=== PATIENT | female | born 1965 | race Caucasian/White ===

== ENCOUNTER 2022-01-09 20:00 | Inpatient (IN) | payer OTHER ==
--- NOTE | 2022-01-10 00:02 | CT ---
EXAMINATION TYPE: CT brain wo con DATE OF EXAM: 01/09/2022 COMPARISON: None HISTORY: history of previous bleed 09/2021. no prior on PACS CT DLP: 1086.4 mGycm Automated exposure control for dose reduction was used. Images of the brain obtained with no contrast. Ventricles have normal size. There is no mass effect or midline shift. No evidence of intracranial he morrhage. There is mild cerebral atrophy. The calvarium is intact. Skull base is intact. IMPRESSION: Mild atrophy. No acute intracranial abnormality.
[2022-01-10] MEDS ORDERED: ONDANSETRON 4 MG/2 ML VIAL IVP STA (00:41)
[2022-01-10] MEDS ORDERED: SODIUM CHLORIDE 0.9% 1,000 ML IV STA (00:41)
--- NOTE | 2022-01-10 00:52 | ED ---
Nausea/Vomiting/Diarrhea HPI - General Chief complaint: Nausea/Vomiting/Diarrhea Stated complaint: Post brain hemorrhage,NVD Time Seen by Provider: 01/10/22 00:40 Source: patient, RN notes reviewed, old records reviewed Mode of arrival: ambulatory Limitations: no limitations - History of Present Illness Initial comments: This is a 48-year-old female to the emergency department for evaluation. Patient can be in for not feeling well. Positive nausea positive vomiting dehydration weakness lightheadedness dizziness not feeling well. Patient does have history of left abnormalities concerned about low potassium. Patient is without fever but has not been feeling well for a few days. MD complaint: nausea, vomiting, diarrhea, abdominal pain -: days(s) Description of Diarrhea: mucous Location: diffuse Radiation: none Severity: moderate Severity scale (1-10): 5 Quality: cramping Consistency: intermittent Improves with: none Worsens with: none Associated Symptoms: loss of appetite, malaise, nausea/vomiting, weakness - Related Data Allergies Allergy/AdvReac Type Severity Reaction Status Date / Time No Known Allergies Allergy Verified 01/09/22 20:31 Review of Systems ROS Statement: Those systems with pertinent positive or pertinent negative responses have been documented in the HPI. ROS Other: All systems not noted in ROS Statement are negative. Past Medical History Past Medical History: GERD/Reflux, Hypertension Additional Past Medical History / Comment(s): Brain bleed in august 2021 History of Any Multi-Drug Resistant Organisms: None Reported Past Surgical History: No Surgical Hx Reported Past Psychological History: Anxiety Smoking Status: Never smoker Past Alcohol Use History: Rare Past Drug Use History: None Reported General Exam Limitations: no limitations General appearance: alert, in no apparent distress Head exam: Present: atraumatic, normocephalic, normal inspection Eye exam: Present: normal appearance, PERRL, EOMI. Absent: scleral icterus, conjunctival injection, periorbital swelling ENT exam: Present: normal exam, mucous membranes moist Neck exam: Present: normal inspection. Absent: tenderness, meningismus, lymphadenopathy Respiratory exam: Present: normal lung sounds bilaterally. Absent: respiratory distress, wheezes, rales, rhonchi, stridor Cardiovascular Exam: Present: normal rhythm, tachycardia, normal heart sounds. Absent: systolic murmur, diastolic murmur, rubs, gallop, clicks GI/Abdominal exam: Present: soft, normal bowel sounds. Absent: distended, tenderness, guarding, rebound, rigid Extremities exam: Present: normal inspection, full ROM, normal capillary refill. Absent: tenderness, pedal edema, joint swelling, calf tenderness Back exam: Present: normal inspection Neurological exam: Present: alert, oriented X3, CN II-XII intact Psychiatric exam: Present: normal affect, normal mood Skin exam: Present: warm, dry, intact, normal color. Absent: rash Course Vital Signs 01/09/22 20:27 Temperature 98.3 F Pulse Rate 127 H Respiratory 20 Rate Blood Pressure 128/91 O2 Sat by Pulse 93 L Oximetry - Reevaluation(s) Reevaluation #1: 01/10/22 04:25 Medical record is reviewed Reevaluation #2: 01/10/22 04:25 Patient informed results and questions answered Reevaluation #3: 01/10/22 04:25 Patient has improvement in symptoms here in the ER - Consultations Consultation #1: Spoke with sound physicians review admit this patient Medical Decision Making - Medical Decision Making 48 female DF for evaluation of persistent nausea vomiting diarrhea mild hepatitis versus cholecystitis we'll obtain ultrasound in the morning and surgical consult patient be admitted for symptomatic therapy - Lab Data Result diagrams: 01/10/22 01:20 Lab Results 01/10/22 01/10/22 01/10/22 Range/Units 01:20 01:20 01:20 Sodium 132 L (137-145) mmol/L Potassium 5.9 H (3.5-5.1) mmol/L Chloride 99 (98-107) mmol/L Carbon Dioxide 21 L (22-30) mmol/L Anion Gap 12 mmol/L BUN 15 (7-17) mg/dL Creatinine 0.55 (0.52-1.04) mg/dL Est GFR (CKD-EPI)AfAm >90 (>60 ml/min/1.73 sqM) Est GFR (CKD-EPI)NonAf >90 (>60 ml/min/1.73 sqM) Glucose 95 (74-99) mg/dL Plasma Lactic Acid Man 1.6 (0.7-2.0) mmol/L Calcium 8.9 (8.4-10.2) mg/dL Phosphorus 3.9 (2.5-4.5) mg/dL Magnesium 1.8 (1.6-2.3) mg/dL Total Bilirubin 2.5 H (0.2-1.3) mg/dL AST 198 H (14-36) U/L ALT 75 H (4-34) U/L Alkaline Phosphatase 211 H (38-126) U/L Troponin I 0.018 (0.000-0.034) ng/mL Total Protein 7.9 (6.3-8.2) g/dL Albumin 4.3 (3.5-5.0) g/dL Disposition Clinical Impression: Dehydration, Gastroenteritis, Hepatitis, Hyperbilirubinemia Disposition: ADMITTED IP TO THIS HOSP Condition: Fair Is patient prescribed a controlled substance at d/c from ED?: No Time of Disposition: 03:35
[2022-01-10 02:15] LABS: ALT 75 U/L (4-34); AST 198 U/L (14-36); African American GFR (CKD) >90 (>60 ml/min/1.73 sqM); Albumin 4.3 g/dL (3.5-5.0); Alkaline Phosphatase 211 U/L (38-126); Anion Gap 12 mmol/L; Blood Urea Nitrogen 15 mg/dL (7-17); Calcium 8.9 mg/dL (8.4-10.2); Carbon Dioxide 21 mmol/L (22-30); Chloride 99 mmol/L (98-107); Glucose 95 mg/dL (74-99); Magnesium 1.8 mg/dL (1.6-2.3); Non-African American GFR(CKD) >90 (>60 ml/min/1.73 sqM); Phosphorus 3.9 mg/dL (2.5-4.5); Sodium 132 mmol/L (137-145); Total Bilirubin 2.5 mg/dL (0.2-1.3); Total Protein 7.9 g/dL (6.3-8.2)
[2022-01-10 02:47] LABS: Potassium 5.9 mmol/L (3.5-5.1)
[2022-01-10] MEDS ORDERED: NALOXONE 0.4 MG/ML 1 ML VIAL IV PRN (03:15)
[2022-01-10] MEDS ORDERED: SODIUM CHLORIDE 0.9% 1,000 ML IV SCH (03:15)
[2022-01-10] MEDS ORDERED: ONDANSETRON 4 MG/2 ML VIAL IVP PRN (03:15)
[2022-01-10] MEDS ORDERED: MORPHINE SULFATE 4 MG/ML SYRINGE IV PRN (03:15)
[2022-01-10 04:26] LABS: Basophils % (A) 0 %; Eosinophils # (A) 0.3 k/uL (0-0.7); Eosinophils % (A) 2 %; HGB 12.6 gm/dL (11.4-16.0); Lymphocytes # (A) 1.5 k/uL (1.0-4.8); Lymphocytes % (A) 13 %; MCH 29.3 pg (25.0-35.0); MCHC 32.4 g/dL (31.0-37.0); MCV 90.4 fL (80.0-100.0); Mean Platelet Volume 8.6; Monocytes # (A) 0.6 k/uL (0-1.0); Monocytes % (A) 5 %; Neutrophils % (A) 77 %; Platelet Count 172 k/uL (150-450); RBC 4.32 m/uL (3.80-5.40); RDW 15.1 % (11.5-15.5); WBC 11.6 k/uL (3.8-10.6)
--- NOTE | 2022-01-10 08:53 | US ---
EXAMINATION TYPE: US gallbladder DATE OF EXAM: 01/10/2022 COMPARISON: NONE CLINICAL HISTORY: NVD, pain. Nausea, vomiting, diarrhea, generalized abdomen pain for 3 months TECHNIQUE: Multiple sonographic images of the right upper quadrant are obtained. FINDINGS: EXAM MEASUREMENTS: Liver Length: 13.2 cm Gallbladder Wall: 0.12 cm CBD: 0.42 cm Right Kidney: 9.6 x 3.9 x 5.1 cm Pancreas: Tail obscured by overlying bowel gas Liver: Increased attenuation, decreased visualization of vessels suggestive of fatty infiltrate Gallbladder: Enlarged at 11.0 cm Evidence for sonographic Farooq's sign: No CBD: wnl Right Kidney: wnl IMPRESSION: 1. Hepatocellular disease commonly relating to fatty infiltration. 2. Dilated gallbladder without evidence for acute cholecystitis.
[2022-01-10] MEDS ORDERED: NON FORMULARY DRUG (Omeprazole [Omeprazole] 20 MG Capsule.Dr) PO SCH (09:00)
[2022-01-10] MEDS: PANTOPRAZOLE 40 MG/10 ML VIAL IV SCH (09:50)
[2022-01-10] MEDS: lisinopriL 10 MG TAB PO SCH (09:51)
[2022-01-10] MEDS: EZETIMIBE 10 MG TAB PO SCH (09:51)
[2022-01-10] MEDS: SERTRALINE 100 MG TAB PO SCH (09:51)
[2022-01-10] MEDS: LACTATED RINGERS 1,000 ML IV SCH ×5 (09:54→23:22)
--- NOTE | 2022-01-10 10:35 | P.HPIM ---
History of Present Illness H&P Date: 01/10/22 History of Presenting Illness: Patient is a very pleasant 56-year-old female with a past medical history of a hypertension, GERD, and a reported brain bleed in September 2021. She presented to the emergency department with a chief complaint of not feeling well. Patient reports that she has progressively been feeling worse since September/2021. Patient states that she has experienced 10-15 episodes of diarrhea daily, nausea, loss of appetite, and a 40 pound weight loss. Patient states that she has been evaluated multiple times and treated for low potassium and magnesium levels. Patient states due to the chronic diarrhea and decreased appetite she experiences dizziness/lightheadedness as well as occasional episodes of vomiting. She denies having any fevers, changes in vision or hearing, chest pain or palpitations, shortness of breath, hematemesis, hematochezia, melena, changes in urinary function, or experiencing any numbness/tingling/weakness/swelling of her extremities. Patient states she came to the emergency department today because she was having pain in her left upper quadrant and felt as though she was very dehydrated. She underwent full evaluation in the emergency department. CBC revealed mild leukocytosis with WBC count of 11.6, BMP revealed mild hyponatremia with sodium of 132 and hyperkalemia with potassium of 5.9 which was a hemolyzed specimen. Liver profile revealing transaminitis with AST of 198, ALT 75, and alkaline phosphatase of 211 with an elevated total bili of 2.5. Lipase elevated at 886. Hepatitis panel nonreactive. CT brain negative for acute intercranial abnormality revealing mild atrophy. Gallbladder ultrasound revealing hepatocellular disease with dilated gallbladder. Patient admitted under our services with consultation to general surgery. Review of systems: Pertinent positives and negatives as discussed in HPI, a complete review of systems was performed and all other systems are negative. Physical exam: Vital signs reviewed and stable. General: Nontoxic, no distress and appears stated age. Ill appearing. Derm: Skin warm and dry, normal coloration for ethnicity. Head: Atraumatic, normocephalic and symmetric. Eyes: EOMs intact, no lid lag, and anicteric sclera Mouth: no lip lesions, mucus membranes moist Cardiovascular: regular rate and rhythm with normal S1S2, no murmur, positive posterior tibial pulses bilaterally, and cap refill < 2 seconds. Lungs: Respirations even, regular, and unlabored on room air. Lungs CTA bilaterally, no rhonchi, no rales, no wheezing, and no accessory muscle usage. Abdominal: soft, right upper quadrant and epigastric tenderness to palpation., no guarding, no appreciable organomegaly Ext: ROM intact. No gross muscle atrophy, no edema, no contractures Neuro: Speech clear, face symmetrical and CN II-XII grossly intact with no noted focal neuro deficits Psych: Alert and oriented to person, place, time, and situation. Appropriate and pleasant affect. Assessment and Plan of Care: Pancreatitis Dehydration secondary to decreased oral intake and chronic intractable diarrhea Hyponatremia Transaminitis Hyperbilirubinemia Right upper quadrant pain Hyponatremia Fatigue Intractable diarrhea Decreased appetite Reported unintentional weight loss of 40 pounds over the months -Liver profile revealing transaminitis with AST of 198, ALT 75, and alkaline phosphatase of 211 with an elevated total bili of 2.5. Lipase elevated at 886. -Gallbladder ultrasound revealing hepatocellular disease with dilated gallbladder. -Gen. surgery consulted -Symptomatic care and pain management. -Continuous IV fluid hydration -NPO until cleared by general surgery. -Symptomatic care and pain management The patient is admitted with an anticipated less than 2 midnight stay for eval uation of pancreatitis and dehydration with elevated liver enzymes CODE STATUS: Full code DVT prophylaxis: Lovenox Discussed with: Patient and RN Anticipated discharge date: 1-[address]: Home A total of 45 minutes was spent on the care of this complex patient more than 50% of the time was spent in counseling and care coordination. Past Medical History Past Medical History: GERD/Reflux, Hypertension Additional Past Medical History / Comment(s): Brain bleed in august 2021 History of Any Multi-Drug Resistant Organisms: None Reported Past Surgical History: No Surgical Hx Reported Past Psychological History: Anxiety Smoking Status: Never smoker Past Alcohol Use History: Rare Past Drug Use History: None Reported Medications and Allergies Home Medications Medication Instructions Recorded Confirmed Type Clotrimazole/Betameth Cream 1 applic TOPICAL BID 01/10/22 01/10/22 History [Lotrisone] Dextroamphetamine/Amphetamine 20 mg PO DAILY 01/10/22 01/10/22 History [Adderall Xr 20 mg Capsule] Ezetimibe [Zetia] 10 mg PO DAILY 01/10/22 01/10/22 History Omeprazole 20 mg PO DAILY 01/10/22 01/10/22 History Potassium Chloride ER [K-Dur 20] 20 meq PO BID 01/10/22 01/10/22 History Sertraline [Zoloft] 100 mg PO DAILY 01/10/22 01/10/22 History lisinopriL [Prinivil] 10 mg PO DAILY 01/10/22 01/10/22 History Allergies Allergy/AdvReac Type Severity Reaction Status Date / Time No Known Allergies Allergy Verified 01/10/22 07:53 Physical Exam Vitals: Vital Signs Temp Pulse Resp BP Pulse Ox 01/09/22 20:27 98.3 F 127 H 20 128/91 93 L Intake and Output 01/09/22 01/10/22 01/10/22 22:59 06:59 14:59 Other: Weight 58.559 kg Results CBC & Chem 7: 01/10/22 03:44 01/10/22 14:39 Labs: Abnormal Lab Results - Last 24 Hours (Table) 01/09/22 01/10/22 01/10/22 Range/Units 01:20 01:20 03:44 WBC 11.6 H (3.8-10.6) k/uL Neutrophils # 9.0 H (1.3-7.7) k/uL Sodium 132 L (137-145) mmol/L Potassium 5.9 H (3.5-5.1) mmol/L Carbon Dioxide 21 L (22-30) mmol/L Total Bilirubin 2.5 H (0.2-1.3) mg/dL AST 198 H (14-36) U/L ALT 75 H (4-34) U/L Alkaline Phosphatase 211 H (38-126) U/L Lipase 886 H (23-300) U/L
[2022-01-10] MEDS ORDERED: Potassium Replacement Protocol 1 EACH MISC MISCELLANE PRN (10:59)
[2022-01-10] MEDS: POTASSIUM CHLORIDE ER 20 MEQ TAB.ER PO SCH ×2 (11:10→13:11)
[2022-01-10 12:23] LABS: Hepatitis A Antibody IgM Nonreactive (Nonreactive); Hepatitis B Core IgM Nonreactive (Nonreactive); Hepatitis B Surface Antigen Nonreactive (Nonreactive); Hepatitis C IgG Antibody Nonreactive (Nonreactive)
--- NOTE | 2022-01-10 13:33 | P.GSCN ---
History of Present Illness Consult date: 01/10/22 History of present illness: CHIEF COMPLAINT: Nausea vomiting and dizziness HISTORY OF PRESENT ILLNESS: This is a 56-year-old female who presents to the ER with complaints of nausea vomiting and dizziness for the last couple of months. She also reports having diarrhea and pain very lethargic. She reports poor oral intake. She's had a 40 pound weight loss within the last 2 months. She was recently hospitalized and required ICU care in September of this year for a brain bleed. Patient has been having some epigastric and right upper quadrant abdominal pain. Patient did have elevated lipase of 886 and mildly elevated LFTs as well as total bilirubin. Patient reports that she's been dealing with more of a hypokalemia due to all of her diarrhea. She was tachycardic on admission this has improved. Patient denies any cardiac history. Patient seen and examined with Dr. campos. All test results and findings reviewed by Dr. campos. PAST MEDICAL HISTORY: See list. PAST SURGICAL HISTORY: See list. MEDICATIONS: See list. ALLERGIES: See list. SOCIAL HISTORY: No illicit drug use. REVIEW OF SYSTEMS: CONSTITUTIONAL: Denies fever or chills. HEENT: Denies blurred vision, vision changes, or eye pain. Denies hemoptysis CARDIOVASCULAR: Denies chest pain or pressure. RESPIRATORY: No shortness of breath. GASTROINTESTINAL: See HPI for pertinent findings HEMATOLOGIC: Denies bleeding disorders. GENITOURINARY: Denies any blood in urine or increased urinary frequency. SKIN: Denies pruitis. Denies rash. PHYSICAL EXAM: VITAL SIGNS: Reviewed GENERAL: Well-developed in no acute distress. HEENT: No sclera icterus. Extraocular movements grossly intact. Moist buccal mucosa. Head is atraumatic, normocephalic. No nasal drainage. ABDOMEN: Soft. Nondistended. Tenderness to palpation of the right upper quadrant and epigastric area NEUROLOGIC: Alert and oriented. Cranial nerves II through XII grossly intact. LABORATORY DATA: WBC is 11.6 Hgb 12.6 platelets 172 Sodium 132 potassium 5.9 down to 3.0 creatinine 0.55 Total bilirubin 2.5 AST 198 ALT 75 alk phos 211 Lipase 886 Hepatitis panel nonreactive IMAGING: Gallbladder ultrasound hepatocellular disease, related to fatty infiltration. Dilated gallbladder without evidence for acute cholecystitis. ASSESSMENT: 1. Right upper quadrant pain with dilated gallbladder on ultrasound 2. Elevated LFTs 3. Pancreatitis 4. Hypokalemia PLAN: -Patient scheduled for laparoscopic cholecystectomy today with Dr. campos -Keep patient nothing by mouth -Add IV antibiotic due to elevated white count -Continue IV fluids -Continue supportive care -Replace potassium Thank you for this consultation Physician [employer] note has been reviewed by physician. Signing provider agrees with the documented findings, assessment, and plan of care. Past Medical History Past Medical History: GERD/Reflux, Hypertension Additional Past Medical History / Comment(s): Brain bleed in august 2021 History of Any Multi-Drug Resistant Organisms: None Reported Past Surgical History: No Surgical Hx Reported Past Psychological History: Anxiety Smoking Status: Never smoker Past Alcohol Use History: Rare Past Drug Use History: None Reported Medications and Allergies Home Medications Medication Instructions Recorded Confirmed Type Clotrimazole/Betameth Cream 1 applic TOPICAL BID 01/10/22 01/10/22 History [Lotrisone] Dextroamphetamine/Amphetamine 20 mg PO DAILY 01/10/22 01/10/22 History [Adderall Xr 20 mg Capsule] Ezetimibe [Zetia] 10 mg PO DAILY 01/10/22 01/10/22 History Omeprazole 20 mg PO DAILY 01/10/22 01/10/22 History Potassium Chloride ER [K-Dur 20] 20 meq PO BID 01/10/22 01/10/22 History Sertraline [Zoloft] 100 mg PO DAILY 01/10/22 01/10/22 History lisinopriL [Prinivil] 10 mg PO DAILY 01/10/22 01/10/22 History Allergies Allergy/AdvReac Type Severity Reaction Status Date / Time No Known Allergies Allergy Verified 01/10/22 07:53 Surgical - Exam Vital Signs Temp Pulse Resp BP Pulse Ox 98.3 F 127 H 20 128/91 93 L 01/09/22 20:27 01/09/22 20:27 01/09/22 20:27 01/09/22 20:27 01/09/22 20:27 Results - Labs 01/10/22 03:44 01/10/22 10:08 Abnormal Lab Results - Last 24 Hours (Table) 01/09/22 01/10/22 01/10/22 Range/Units 01:20 01:20 03:44 WBC 11.6 H (3.8-10.6) k/uL Neutrophils # 9.0 H (1.3-7.7) k/uL Sodium 132 L (137-145) mmol/L Potassium 5.9 H (3.5-5.1) mmol/L Carbon Dioxide 21 L (22-30) mmol/L Total Bilirubin 2.5 H (0.2-1.3) mg/dL AST 198 H (14-36) U/L ALT 75 H (4-34) U/L Alkaline Phosphatase 211 H (38-126) U/L Lipase 886 H (23-300) U/L 01/10/22 Range/Units 10:08 WBC (3.8-10.6) k/uL Neutrophils # (1.3-7.7) k/uL Sodium (137-145) mmol/L Potassium 3.0 L (3.5-5.1) mmol/L Carbon Dioxide (22-30) mmol/L Total Bilirubin (0.2-1.3) mg/dL AST (14-36) U/L ALT (4-34) U/L Alkaline Phosphatase (38-126) U/L Lipase (23-300) U/L Diabetes panel 01/10/22 01/10/22 Range/Units 01:20 10:08 Sodium 132 L (137-145) mmol/L Potassium 5.9 H 3.0 L (3.5-5.1) mmol/L Chloride 99 (98-107) mmol/L Carbon Dioxide 21 L (22-30) mmol/L BUN 15 (7-17) mg/dL Creatinine 0.55 (0.52-1.04) mg/dL Glucose 95 (74-99) mg/dL Calcium 8.9 (8.4-10.2) mg/dL AST 198 H (14-36) U/L ALT 75 H (4-34) U/L Alkaline Phosphatase 211 H (38-126) U/L Total Protein 7.9 (6.3-8.2) g/dL Albumin 4.3 (3.5-5.0) g/dL Calcium panel 01/10/22 Range/Units 01:20 Calcium 8.9 (8.4-10.2) mg/dL Phosphorus 3.9 (2.5-4.5) mg/dL Albumin 4.3 (3.5-5.0) g/dL Pituitary panel 01/10/22 01/10/22 Range/Units 01:20 10:08 Sodium 132 L (137-145) mmol/L Potassium 5.9 H 3.0 L (3.5-5.1) mmol/L Chloride 99 (98-107) mmol/L Carbon Dioxide 21 L (22-30) mmol/L BUN 15 (7-17) mg/dL Creatinine 0.55 (0.52-1.04) mg/dL Glucose 95 (74-99) mg/dL Calcium 8.9 (8.4-10.2) mg/dL Adrenal panel 01/10/22 01/10/22 Range/Units 01:20 10:08 Sodium 132 L (137-145) mmol/L Potassium 5.9 H 3.0 L (3.5-5.1) mmol/L Chloride 99 (98-107) mmol/L Carbon Dioxide 21 L (22-30) mmol/L BUN 15 (7-17) mg/dL Creatinine 0.55 (0.52-1.04) mg/dL Glucose 95 (74-99) mg/dL Calcium 8.9 (8.4-10.2) mg/dL Total Bilirubin 2.5 H (0.2-1.3) mg/dL AST 198 H (14-36) U/L ALT 75 H (4-34) U/L Alkaline Phosphatase 211 H (38-126) U/L Total Protein 7.9 (6.3-8.2) g/dL Albumin 4.3 (3.5-5.0) g/dL
[2022-01-10] MEDS ORDERED: POTASSIUM CHLORIDE ER 20 MEQ TAB.ER PO STA (15:27)
[2022-01-10] MEDS: PIPERACILLIN-TAZOBACTAM 3.375 GM in SODIUM CHLORIDE 0.9% 100 ML IVPB SCH ×2 (15:59→23:21)
[2022-01-10] MEDS ORDERED: DEXAMETHASONE SOD PHOSPHATE 4 MG/ML 1 ML VIAL IV ONE (19:13)
[2022-01-10] MEDS ORDERED: ONDANSETRON 4 MG/2 ML VIAL IVP ONE (19:13)
[2022-01-11] MEDS ORDERED: HYDROmorphone 0.5 MG/0.5 ML SYRINGE IVP PRN (07:00)
[2022-01-11] MEDS: PIPERACILLIN-TAZOBACTAM 3.375 GM in SODIUM CHLORIDE 0.9% 100 ML IVPB SCH ×2 (08:18→15:50)
[2022-01-11] MEDS: ENOXAPARIN 40 MG/0.4 ML SYRINGE SQ SCH (08:19)
[2022-01-11] MEDS: SERTRALINE 100 MG TAB PO SCH (08:20)
[2022-01-11] MEDS: PANTOPRAZOLE 40 MG/10 ML VIAL IV SCH (08:20)
[2022-01-11] MEDS: lisinopriL 10 MG TAB PO SCH (08:20)
[2022-01-11] MEDS: EZETIMIBE 10 MG TAB PO SCH (08:31)
[2022-01-11 09:17] LABS: Basophils # (A) 0.01 X 10*3/uL (0.00-0.10); Basophils % (A) 0.1 %; Eosinophils # (A) 0.02 X 10*3/uL (0.04-0.35); Eosinophils % (A) 0.2 %; HCT 31.9 % (37.2-46.3); HGB 10.5 g/dL (12.0-15.0); Immature Grans, Automated 0.6 %; Lymphocytes % (A) 10.4 %; MCH 29.3 pg (27.0-32.0); MCHC 32.9 g/dL (32.0-37.0); MCV 89.1 fL (80.0-97.0); Mean Platelet Volume 11.5 fL (9.5-12.2); Monocytes # (A) 0.59 X 10*3/uL (0.20-1.00); Monocytes % (A) 6.8 %; NRBC Per 100 WBC 0 /100 WBCS (0.0-0.0); Neutrophils # (A) 7.12 X 10*3/uL (1.80-7.70); Neutrophils % (A) 81.9 %; Platelet Count 166 X 10*3/uL (140-440); RBC 3.58 X 10*6/uL (4.10-5.20); RDW 15.2 % (11.5-14.5); WBC 8.69 X 10*3/uL (4.50-10.00)
[2022-01-11 09:36] LABS: INR 1.02 (0.90-1.11); Prothrombin Time 11.2 sec (9.9-11.9)
[2022-01-11 10:56] LABS: Magnesium 1.8 mg/dL (1.5-2.4)
[2022-01-11] MEDS ORDERED: IV FLUID CONTINUATION 1,000 ML IV ONE (13:19)
[2022-01-11] MEDS ORDERED: ONDANSETRON 4 MG/2 ML VIAL IVP ONE (13:22)
[2022-01-11] MEDS ORDERED: DEXAMETHASONE SOD PHOSPHATE 4 MG/ML 1 ML VIAL IVP ONE (13:23)
[2022-01-11] MEDS ORDERED: PROPOFOL 10 MG/ML 20 ML VIAL IV ONE (13:54)
[2022-01-11] MEDS ORDERED: NEOSTIGMINE 1 MG/ML 10 ML VIAL ONE (13:54)
[2022-01-11] MEDS ORDERED: ROCURONIUM 10 MG/ML (5 ML VIAL) IV ONE (13:54)
[2022-01-11] MEDS ORDERED: SUCCINYLCHOLINE CHLORIDE 200 MG/10 ML VIAL IV ONE (13:54)
[2022-01-11] MEDS ORDERED: fentaNYL (PF) 50 MCG/ML 2 ML AMP ONE (13:54)
[2022-01-11] MEDS ORDERED: GLYCOPYRROLATE 0.2 MG/ML 2 ML VIAL ONE (13:54)
[2022-01-11] MEDS ORDERED: KETOROLAC 15 MG/ML 1 ML VIAL ONE (13:54)
[2022-01-11] MEDS ORDERED: MIDAZOLAM 2 MG/2 ML VIAL ONE (13:54)
[2022-01-11] MEDS ORDERED: HYDROmorphone (PF) 1 MG/ML ONE (13:54)
[2022-01-11] MEDS ORDERED: LIDOCAINE 2% INJ 20 MG/ML (2 ML VIAL) ONE (13:54)
[2022-01-11] MEDS ORDERED: PHENYLEPHRINE-0.9% NACL SYG 1,000 MCG/10 ML SYRINGE ONE (13:54)
[2022-01-11] MEDS ORDERED: BUPIVACAIN-EPI 0.25%-1:200,000 30 ML VIAL SQ ONE ×2 (13:55)
--- NOTE | 2022-01-11 14:38 | P.OP ---
Date of Procedure: 01/11/22 Preoperative Diagnosis: Cholecystitis Postoperative Diagnosis: Cholecystitis Procedure(s) Performed: Laparoscopic cholecystectomy Anesthesia: DAXA Surgeon: Jb Sandoval Estimated Blood Loss (ml): 5 Pathology: other (Gallbladder) Condition: stable Disposition: PACU Description of Procedure: The patient was placed on the operating table. The patient received a general endotracheal tube anesthesia. The patients abdomen was prepped and draped in the usual sterile fashion. Through an infraumbilical stab incision, the fascia of the anterior abdominal wall was grasped with a pair of Kochers and then the Veress needle was placed in the peritoneal cavity. Position of the Veress needle was confirmed with positive drop test. The abdomen was then insufflated. After adequate insufflation, the 10 mm trocar was placed in the peritoneal cavity. Following this the laparoscope was placed in the peritoneal cavity. The patient was placed in the head-up, right side up position and then a 5 mm trocar was placed in the right lateral and right subcostal position under direct visualization. A 8 mm trocar was placed in the epigastric position. The gallbladder was grasped in the fundus and infundibulum. Traction on the gallbladder was placed in the lateral and the cephalad positions. The triangle of Calot was visualized.. The cystic duct was bluntly dissected until the union of the cystic duct and common bile duct was seen. A critical view of safety was achieved. The cystic duct was then divided and sealed with the Harmonic scissors. A PDS Endoloop was then placed throughout the cystic duct stump. The cystic artery divided and sealed with the Harmonic scissors. The gallbladder was then removed from the liver bed using Harmonic scissors. The gallbladder was then extracted through the epigastric port site. Operative field was checked for any bleeding spots and Harmonic scissors was used to coagulate the liver bed. The abdomen was irrigated. The trocars were removed. The skin was closed using interrupted 3-0 Vicryl suture. Dermabond dressing were applied. The patient tolerated the procedure well.
[2022-01-11] MEDS: LACTATED RINGERS 1,000 ML IV SCH ×2 (14:39→20:33)
[2022-01-11] MEDS ORDERED: LACTATED RINGERS 1,000 ML IV ONE ×2 (14:42)
--- NOTE | 2022-01-11 17:50 | P.PN ---
Subjective Progress Note Date: 01/11/22 Hospital course: Patient is a very pleasant 56-year-old female with a past medical history of a hypertension, GERD, and a reported brain bleed in September 2021. She presented to the emergency department with a chief complaint of not feeling well. Patient reports that she has progressively been feeling worse since September/2021. Patient states that she has experienced 10-15 episodes of diarrhea daily, nausea, loss of appetite, and a 40 pound weight loss. Patient states that she has been evaluated multiple times and treated for low potassium and magnesium levels. Patient states due to the chronic diarrhea and decreased appetite she experiences dizziness/lightheadedness as well as occasional episodes of vomiting. She denies having any fevers, changes in vision or hearing, chest pain or palpitations, shortness of breath, hematemesis, hematochezia, melena, changes in urinary function, or experiencing any numbness/tingling/weakness/swelling of her extremities. Patient states she came to the emergency department today because she was having pain in her left upper quadrant and felt as though she was very dehydrated. She underwent full evaluation in the emergency department. CBC revealed mild leukocytosis with WBC count of 11.6, BMP revealed mild hyponatremia with sodium of 132 and hyperkalemia with potassium of 5.9 which was a hemolyzed specimen. Liver profile revealing transaminitis with AST of 198, ALT 75, and alkaline phosphatase of 211 with an elevated total bili of 2.5. Lipase elevated at 886. Hepatitis panel nonreactive. CT brain negative for acute intercranial abnormality revealing mild atrophy. Gallbladder ultrasound revealing hepatocellular disease with dilated gallbladder. Patient admitted under our services with consultation to general surgery. Physical exam: Patient seen and fully evaluated at bedside this morning. Awaiting to be taken down for scheduled laparoscopic cholecystectomy with Dr. Sandoval later today. She currently reports pain is controlled and denies having any nausea or vomiting at this time. Vital signs stable. Morning labs reviewed and stable. Vital signs reviewed and stable. General: Nontoxic, no distress and appears stated age. Ill appearing. Derm: Skin warm and dry, normal coloration for ethnicity. Head: Atraumatic, normocephalic and symmetric. Eyes: EOMs intact, no lid lag, and anicteric sclera Mouth: no lip lesions, mucus membranes moist Cardiovascular: regular rate and rhythm with normal S1S2, no murmur, positive posterior tibial pulses bilaterally, and cap refill < 2 seconds. Lungs: Respirations even, regular, and unlabored on room air. Lungs CTA bilaterally, no rhonchi, no rales, no wheezing, and no accessory muscle usage. Abdominal: soft, right upper quadrant and epigastric tenderness to palpation., no guarding, no appreciable organomegaly Ext: ROM intact. No gross muscle atrophy, no edema, no contractures Neuro: Speech clear, face symmetrical and CN II-XII grossly intact with no noted focal neuro deficits Psych: Alert and oriented to person, place, time, and situation. Appropriate and pleasant affect. Assessment and Plan of Care: Pancreatitis Dehydration secondary to decreased oral intake and chronic intractable diarrhea Hyponatremia Transaminitis Hyperbilirubinemia Right upper quadrant pain Fatigue Intractable diarrhea Decreased appetite Reported unintentional weight loss of 40 pounds over the months -Liver profile revealing transaminitis with AST of 198, ALT 75, and alkaline phosphatase of 211 with an elevated total bili of 2.5. Lipase elevated at 886. -Gallbladder ultrasound revealing hepatocellular disease with dilated gallbladder. -Gen. surgery following, planning to take patient for laparoscopic cholecystectomy later today. -Symptomatic care and pain management. -Continuous IV fluid hydration -NPO until diet advanced by general surgery status post planned cholecystectomy later today. -Symptomatic care and pain management CODE STATUS: Full code DVT prophylaxis: Lovenox Discussed with: Patient and RN Anticipated discharge date: 1-[address]: Home A total of 35 minutes was spent on the care of this complex patient more than 50% of the time was spent in counseling and care coordination. Objective - Vital Signs Vital signs: Vital Signs Temp 98.6 F 01/11/22 07:39 Pulse 77 01/11/22 07:39 Resp 14 01/11/22 07:39 BP 113/73 01/11/22 07:39 Pulse Ox 95 01/11/22 07:39 FiO2 Intake & Output 01/10/22 01/11/22 01/11/22 18:59 06:59 18:59 Weight 58.559 kg Other: # Voids 1 - Labs CBC & Chem 7: 01/11/22 05:28 01/11/22 05:28 Labs: Abnormal Lab Results - Last 24 Hours (Table) 01/10/22 Range/Units 10:08 Potassium 3.0 L (3.5-5.1) mmol/L
[2022-01-12] MEDS: LACTATED RINGERS 1,000 ML IV SCH ×5 (00:03→21:13)
[2022-01-12] MEDS: PIPERACILLIN-TAZOBACTAM 3.375 GM in SODIUM CHLORIDE 0.9% 100 ML IVPB SCH ×3 (00:05→15:52)
[2022-01-12] MEDS: HYDROmorphone 1 MG/ML 1 ML SYRINGE IVP PRN ×3 (00:09→08:35)
[2022-01-12] MEDS ORDERED: HYDROcodone/APAP 5-325MG 1 EACH TAB PO PRN (08:16)
[2022-01-12] MEDS: lisinopriL 10 MG TAB PO SCH (08:36)
[2022-01-12] MEDS: PANTOPRAZOLE 40 MG/10 ML VIAL IV SCH (08:36)
[2022-01-12] MEDS: SERTRALINE 100 MG TAB PO SCH (08:37)
[2022-01-12] MEDS: ENOXAPARIN 40 MG/0.4 ML SYRINGE SQ SCH (08:37)
[2022-01-12] MEDS: EZETIMIBE 10 MG TAB PO SCH (08:47)
[2022-01-12] MEDS ORDERED: ENOXAPARIN 40 MG/0.4 ML SYRINGE SQ SCH (09:00)
[2022-01-12 10:54] LABS: HCT 30.6 % (37.2-46.3); HGB 9.8 g/dL (12.0-15.0); MCH 29.3 pg (27.0-32.0); MCV 91.6 fL (80.0-97.0); Mean Platelet Volume 11.4 fL (9.5-12.2); NRBC Per 100 WBC 0 /100 WBCS (0.0-0.0); Platelet Count 156 X 10*3/uL (140-440); RBC 3.34 X 10*6/uL (4.10-5.20); RDW 15.8 % (11.5-14.5); WBC 9.59 X 10*3/uL (4.50-10.00)
[2022-01-12 11:13] LABS: African American GFR (CKD) 116.4 (60.0-200.0); Albumin 2.9 g/dL (3.8-4.9); Albumin/Globulin Ratio 1.45 (1.60-3.17); Anion Gap 10.6 mmol/L (10.00-18.00); Blood Urea Nitrogen 7.2 mg/dL (9.0-27.0); Calcium 8.4 mg/dL (8.7-10.3); Carbon Dioxide 24.4 mmol/L (20.0-27.5); Magnesium 1.6 mg/dL (1.5-2.4); Non-African American GFR(CKD) 100.5 (60.0-200.0); Potassium 3.4 mmol/L (3.5-5.5); Total Bilirubin 0.4 mg/dL (0.30-1.20); Total Protein 4.9 g/dL (6.2-8.2)
[2022-01-12] MEDS: traMADol 50 MG TAB PO PRN ×2 (12:29→21:09)
[2022-01-12 14:29] VITALS: BMI 23.6
[2022-01-12] MEDS ORDERED: POTASSIUM CHLORIDE ER 20 MEQ TAB.ER PO STA (15:17)
--- NOTE | 2022-01-12 15:20 | P.PN ---
Subjective Progress Note Date: 01/12/22 CHIEF COMPLAINT: Cholecystitis HISTORY OF PRESENT ILLNESS: Patient is postop day #1 status post laparoscopic cholecystectomy. Patient does report pain at incision sites. Patient reports the pain is different than admission. She denies any nausea vomiting. Her main complaint is that she continues to have the diarrhea which she's had for a while. She reports that she was seen by a linux network systems administrator at [facility] had recently undergone a colonoscopy and has had stool studies. She has not been able to follow-up with that physician. Afebrile. WBC is 9.59 hemoglobin 9.8 platelets 156 sodium was 140 potassium is 3.4 creatinine 0.6 total bilirubin is down from 2.5-0.4 AST is down from 198-119 ALT 75-73 alk phos 211-168 last lipase down to 191 Patient seen and examined with Dr. campos PHYSICAL EXAM: VITAL SIGNS: Reviewed. GENERAL: Well-developed in no acute distress. HEENT: No sclera icterus. Extraocular movements grossly intact. Moist buccal mucosa. Head is atraumatic, normocephalic. ABDOMEN: Soft. Nondistended. Incision sites clean dry and intact NEUROLOGIC: Alert and oriented. Cranial nerves II through XII grossly intact. ASSESSMENT: 1. Cholecystitis status post laparoscopic cholecystectomy 2. Acute pancreatitis 3. Elevated LFTs 4. Hypokalemia PLAN: -Replace potassium -Continue regular diet -Continue pain management. Patient requesting Ultram incentive Dolphin -Continue antibiotics -Encouraged patient ambulates -Repeat labs in a.m. -GI prophylaxis Protonix and DVT prophylaxis Lovenox Physician Coil Maker note has been reviewed by physician. Signing provider agrees with the documented findings, assessment, and plan of care. Objective - Vital Signs Vital signs: Vital Signs Temp 97.1 F L 01/12/22 14:24 Pulse 85 01/12/22 14:24 Resp 18 01/12/22 14:24 BP 102/68 01/12/22 14:24 Pulse Ox 96 01/12/22 14:24 FiO2 Intake & Output 01/11/22 01/12/22 01/12/22 18:59 06:59 18:59 Intake Total 900 Output Total 105 Balance 795 Weight 58.559 kg Intake: IV 900 Output: Urine 100 Estimated Blood Loss 5 Other: Voiding Method Toilet Toilet Toilet # Voids 2 2 - Labs CBC & Chem 7: 01/12/22 06:45 01/12/22 06:45 Labs: Abnormal Lab Results - Last 24 Hours (Table) 01/12/22 01/12/22 Range/Units 06:45 06:45 RBC 3.34 L (4.10-5.20) X 10*6/uL Hgb 9.8 L (12.0-15.0) g/dL Hct 30.6 L (37.2-46.3) % RDW 15.8 H (11.5-14.5) % Potassium 3.4 L (3.5-5.5) mmol/L BUN 7.2 L (9.0-27.0) mg/dL Calcium 8.4 L (8.7-10.3) mg/dL AST 119 H (13-35) U/L ALT 73 H (8-44) U/L Alkaline Phosphatase 168 H (41-126) U/L Total Protein 4.9 L (6.2-8.2) g/dL Albumin 2.9 L (3.8-4.9) g/dL Albumin/Globulin Ratio 1.45 L (1.60-3.17) g/dL
[2022-01-12] MEDS: KETOROLAC 15 MG/ML 1 ML VIAL IVP SCH (16:19)
--- NOTE | 2022-01-12 16:28 | P.PN ---
Subjective Progress Note Date: 01/12/22 Hospital course: Patient is a very pleasant 56-year-old female with a past medical history of a hypertension, GERD, and a reported brain bleed in September 2021. She presented to the emergency department with a chief complaint of not feeling well. Patient reports that she has progressively been feeling worse since September/2021. Patient states that she has experienced 10-15 episodes of diarrhea daily, nausea, loss of appetite, and a 40 pound weight loss. Patient states that she has been evaluated multiple times and treated for low potassium and magnesium levels. Patient states due to the chronic diarrhea and decreased appetite she experiences dizziness/lightheadedness as well as occasional episodes of vomiting. She denies having any fevers, changes in vision or hearing, chest pain or palpitations, shortness of breath, hematemesis, hematochezia, melena, changes in urinary function, or experiencing any numbness/tingling/weakness/swelling of her extremities. Patient states she came to the emergency department today because she was having pain in her left upper quadrant and felt as though she was very dehydrated. She underwent full evaluation in the emergency department. CBC revealed mild leukocytosis with WBC count of 11.6, BMP revealed mild hyponatremia with sodium of 132 and hyperkalemia with potassium of 5.9 which was a hemolyzed specimen. Liver profile revealing transaminitis with AST of 198, ALT 75, and alkaline phosphatase of 211 with an elevated total bili of 2.5. Lipase elevated at 886. Hepatitis panel nonreactive. CT brain negative for acute intercranial abnormality revealing mild atrophy. Gallbladder ultrasound revealing hepatocellular disease with dilated gallbladder. Patient admitted under our services with consultation to general surgery and underwent laparoscopic cholecystectomy with Dr. Sandoval 01/11/22. Physical exam: Patient seen and fully evaluated at bedside this morning. She is day 1 postop laparoscopic cholecystectomy. She continues to report persistent diarrhea stating she has had approximately 12 episodes over the past 24 hours. Morning labs revealing hemoglobin 9.8, potassium 3.4, and magnesium of 1.6. Hyperbilirubinemia resolved with total bili of 0.40. Liver profile improving with AST of 119, ALT 73, and alkaline phosphatase of 168. Lipase also improving to 191. At this time patient to continue IV antibiotics Zosyn and Flagyl per recommendations of general surgery. Potassium and magnesium to be replaced. Stool be sent for C. diff and patient will likely be discharged within the next 24 hours. Vital signs reviewed and stable. General: Nontoxic, no distress and appears stated age. Chronically Ill appearing. Derm: Skin warm and dry, normal coloration for ethnicity. Head: Atraumatic, normocephalic and symmetric. Eyes: EOMs intact, no lid lag, and anicteric sclera Mouth: no lip lesions, mucus membranes moist Cardiovascular: regular rate and rhythm with normal S1S2, no murmur, positive posterior tibial pulses bilaterally, and cap refill < 2 seconds. Lungs: Respirations even, regular, and unlabored on room air. Lungs CTA bilat erally, no rhonchi, no rales, no wheezing, and no accessory muscle usage. Abdominal: soft, bowel sounds present 4 quadrants, no guarding, no appreciable organomegaly. Laparoscopic Surgical incisions intact, no surrounding erythema or drainage Ext: ROM intact. No gross muscle atrophy, no edema, no contractures Neuro: Speech clear, face symmetrical and CN II-XII grossly intact with no noted focal neuro deficits Psych: Alert and oriented to person, place, time, and situation. Appropriate and pleasant affect. Assessment and Plan of Care: Cholecystitis Acute Pancreatitis Dehydration secondary to decreased oral intake and chronic intractable diarrhea Hyponatremia Transaminitis, improving status post cholecystectomy Hyperbilirubinemia, resolved Intractable diarrhea Hypokalemia Hypomagnesemia -Gallbladder ultrasound revealing hepatocellular disease with dilated gallbladder. -Gen. surgery following, patient underwent a laparoscopic cholecystectomy 01/11/22 -Continue IV antibiotics Zosyn and Flagyl -Symptomatic care and pain management. -Continuous IV fluid hydration and replacement of abnormal electrolyte values as needed -Regular diet and encourage Ensure 3 times daily between meals -Symptomatic care and pain management CODE STATUS: Full code DVT prophylaxis: Lovenox Discussed with: Patient and RN Anticipated discharge date: Likely within the next [address]: Home A total of 35 minutes was spent on the care of this complex patient more than 50% of the time was spent in counseling and care coordination. Objective - Vital Signs Vital signs: Vital Signs Temp 98.8 F 01/12/22 07:00 Pulse 70 01/12/22 07:00 Resp 17 01/12/22 02:47 BP 110/70 01/12/22 07:00 Pulse Ox 95 01/12/22 07:00 FiO2 Intake & Output 0901/12/22 01/12/22 18:59 06:59 18:59 Intake Total 900 Output Total 105 Balance 795 Intake: IV 900 Output: Urine 100 Estimated Blood Loss 5 Other: Voiding Method Toilet Toilet # Voids 2 2 - Labs CBC & Chem 7: 01/12/22 06:45 01/12/22 06:45 Labs: Abnormal Lab Results - Last 24 Hours (Table) 01/11/22 01/11/22 Range/Units 05:28 05:28 RBC 3.58 L (4.10-5.20) X 10*6/uL Hgb 10.5 L (12.0-15.0) g/dL Hct 31.9 L (37.2-46.3) % RDW 15.2 H (11.5-14.5) % Immature Gran # 0.05 H (0.00-0.04) X 10*3/uL Eosinophils # 0.02 L (0.04-0.35) X 10*3/uL Lipase 191 H (14-63) U/L
[2022-01-12] MEDS: MAGNESIUM SULFATE-D5W PMX 1 GM in DEXTROSE/WATER 1 100ML.BAG IVPB SCH ×3 (16:55→19:46)
[2022-01-13] MEDS: PIPERACILLIN-TAZOBACTAM 3.375 GM in SODIUM CHLORIDE 0.9% 100 ML IVPB SCH ×2 (00:44→09:01)
[2022-01-13] MEDS: KETOROLAC 15 MG/ML 1 ML VIAL IVP SCH ×2 (00:44→05:00)
[2022-01-13] MEDS: traMADol 50 MG TAB PO PRN (06:06)
[2022-01-13] MEDS: LACTATED RINGERS 1,000 ML IV SCH ×2 (06:07→10:56)
--- NOTE | 2022-01-13 08:42 | P.PN ---
Subjective Progress Note Date: 01/13/22 CHIEF COMPLAINT: Cholecystitis HISTORY OF PRESENT ILLNESS: Patient is postop day #2 status post laparoscopic cholecystectomy. Pain is controlled. She is tolerating diet. She's afebrile. She's up and ambulating. Morning labs pending Patient seen and examined with Dr. campos PHYSICAL EXAM: VITAL SIGNS: Reviewed. GENERAL: Well-developed in no acute distress. HEENT: No sclera icterus. Extraocular movements grossly intact. Moist buccal mucosa. Head is atraumatic, normocephalic. ABDOMEN: Soft. Nondistended. Incision sites clean dry and intact NEUROLOGIC: Alert and oriented. Cranial nerves II through XII grossly intact. ASSESSMENT: 1. Cholecystitis status post laparoscopic cholecystectomy 2. Acute pancreatitis 3. Elevated LFTs 4. Hypokalemia PLAN: -Patient is stable from surgical standpoint for discharge -Patient to follow up with GI service outpatient regarding her chronic diarrhea Physician Extrusion Process Operator note has been reviewed by physician. Signing provider agrees with the documented findings, assessment, and plan of care. Objective - Vital Signs Vital signs: Vital Signs Temp 98.9 F 01/13/22 01:19 Pulse 84 01/13/22 01:19 Resp 17 01/13/22 01:19 BP 133/80 01/13/22 01:19 Pulse Ox 94 L 01/13/22 01:19 FiO2 Intake & Output 01/12/22 01/13/22 01/13/22 18:59 06:59 18:59 Weight 58.559 kg Other: Voiding Method Toilet Toilet # Voids 1 2 - Labs CBC & Chem 7: 01/12/22 06:45 01/12/22 06:45 Labs: Abnormal Lab Results - Last 24 Hours (Table) 01/12/22 01/12/22 Range/Units 06:45 06:45 RBC 3.34 L (4.10-5.20) X 10*6/uL Hgb 9.8 L (12.0-15.0) g/dL Hct 30.6 L (37.2-46.3) % RDW 15.8 H (11.5-14.5) % Potassium 3.4 L (3.5-5.5) mmol/L BUN 7.2 L (9.0-27.0) mg/dL Calcium 8.4 L (8.7-10.3) mg/dL AST 119 H (13-35) U/L ALT 73 H (8-44) U/L Alkaline Phosphatase 168 H (41-126) U/L Total Protein 4.9 L (6.2-8.2) g/dL Albumin 2.9 L (3.8-4.9) g/dL Albumin/Globulin Ratio 1.45 L (1.60-3.17) g/dL
[2022-01-13] MEDS: SERTRALINE 100 MG TAB PO SCH (09:02)
[2022-01-13] MEDS: lisinopriL 10 MG TAB PO SCH (09:02)
[2022-01-13] MEDS: EZETIMIBE 10 MG TAB PO SCH (09:02)
[2022-01-13] MEDS: PANTOPRAZOLE 40 MG/10 ML VIAL IV SCH (09:02)
[2022-01-13] MEDS: ENOXAPARIN 40 MG/0.4 ML SYRINGE SQ SCH (09:02)
[2022-01-13 09:09] VITALS: BP 110/69; PULSE 76; RESP 16; TEMP 98.4
--- NOTE | 2022-01-13 09:42 | P.DS ---
Providers Date of admission: 01/11/22 17:51 Expected date of discharge: 01/13/22 Attending physician: Alison Garcia MD Consults: 01/10/22 03:15 Consult Physician Routine Consulting Provider: Jb Sandoval Consult Reason/Comments: shana Do you want consulting provider notified?: Yes Primary care physician: Physician Nonstaff Hospital Course: Discharge Diagnosis: Cholecystitis, status post laparoscopic cholecystectomy on 01/11/22. Patient will need to follow up outpatient with general surgery as scheduled on 01/24/22. Acute Pancreatitis, resolved Dehydration secondary to decreased oral intake and chronic intractable diarrhea, resolved Hyponatremia, resolved Transaminitis, improving status post cholecystectomy Hyperbilirubinemia, resolved Chronic diarrhea, patient reports has improved since cholecystectomy but does continue. Patient instructed she will need to follow up outpatient as previously scheduled with her freelance programmer/app developer. Hypokalemia, resolved Hypomagnesemia, resolved Hospital Course: Patient is a very pleasant 56-year-old female with a past medical history of a hypertension, GERD, and a reported brain bleed in September 2021. She presented to the emergency department with a chief complaint of not feeling well. Patient reports that she has progressively been feeling worse since September/2021. Patient states that she has experienced 10-15 episodes of diarrhea daily, nausea, loss of appetite, and a 40 pound weight loss. Patient states that she has been evaluated multiple times and treated for low potassium and magnesium levels. Patient states due to the chronic diarrhea and decreased appetite she experiences dizziness/lightheadedness as well as occasional episodes of vomiting. She denies having any fevers, changes in vision or hearing, chest pain or palpitations, shortness of breath, hematemesis, hematochezia, melena, changes in urinary function, or experiencing any numbness/tingling/weakness/swelling of her extremities. Patient states she came to the emergency department today because she was having pain in her left upper quadrant and felt as though she was very dehydrated. She underwent full evaluation in the emergency department. CBC revealed mild leukocytosis with WBC count of 11.6, BMP revealed mild hyponatremia with sodium of 132 and hyperkalemia with potassium of 5.9 which was a hemolyzed specimen. Liver profile revealing transaminitis with AST of 198, ALT 75, and alkaline phosphatase of 211 with an elevated total bili of 2.5. Lipase elevated at 886. Hepatitis panel nonreactive. CT brain negative for acute intercranial abnormality revealing mild atrophy. Gallbladder ultrasound revealing hepatocellular disease with dilated gallbladder. Patient admitted under our services with consultation to general surgery and underwent laparoscopic cholecystectomy with Dr. Sandoval 01/11/22. Since surgery patient tolerating oral intake with no episodes of nausea or vomiting. Hyperbilirubinemia resolved. Transaminitis improving each day and nearly resolved with AST of 46, ALT of 50, an alkaline phosphatase of 142 on day of discharge. Bilirubin 0.40 on day of discharge. C. diff culture came back negative. Hyponatremia resolved, hypokalemia resolved, and hypomagnesemia all resolved. Patient does report she has had improvement but continues to have episodes of diarrhea. Patient is medically stable for discharge at this time and recommended to follow up outpatient with her PCP, freelance programmer/app developer for further evaluation of chronic diarrhea, and with general surgery as discussed. Physical exam: Vital signs reviewed and stable. General: Nontoxic, no distress and appears stated age. Derm: Skin warm and dry, normal coloration for ethnicity. Head: Atraumatic, normocephalic and symmetric. Eyes: EOMs intact, no lid lag, and anicteric sclera Mouth: no lip lesions, mucus membranes moist Cardiovascular: regular rate and rhythm with normal S1S2, no murmur, positive posterior tibial pulses bilaterally, and cap refill < 2 seconds. Lungs: Respirations even, regular, and unlabored on room air. Lungs CTA bilaterally, no rhonchi, no rales, no wheezing, and no accessory muscle usage. Abdominal: soft, bowel sounds present 4 quadrants, no guarding, no appreciable organomegaly. Laparoscopic Surgical incisions intact, no surrounding erythema or drainage Ext: ROM intact. No gross muscle atrophy, no edema, no contractures Neuro: Speech clear, face symmetrical and CN II-XII grossly intact with no noted focal neuro deficits Psych: Alert and oriented to person, place, time, and situation. Appropriate and pleasant affect. A total of 33 minutes of time were spent preparing this complex discharge summary. Pt was discharged on 01/13/22 at 9:39 AM Patient Condition at Discharge: Stable Plan - Discharge Summary Discharge Rx Participant: No New Discharge Prescriptions: New traMADol HCl [Ultram] 100 mg PO Q8HR PRN 3 Days #9 tab PRN Reason: Pain Ibuprofen [Motrin] 600 mg PO Q8HR PRN #30 tab PRN Reason: Pain Continue Potassium Chloride ER [K-Dur 20] 20 meq PO BID Ezetimibe [Zetia] 10 mg PO DAILY lisinopriL [Prinivil] 10 mg PO DAILY Sertraline [Zoloft] 100 mg PO DAILY Clotrimazole/Betameth Cream [Lotrisone] 1 applic TOPICAL BID Omeprazole 20 mg PO DAILY Discontinued Dextroamphetamine/Amphetamine [Adderall Xr 20 mg Capsule] 20 mg PO DAILY Discharge Medication List Clotrimazole/Betameth Cream [Lotrisone] 1 applic TOPICAL BID 01/10/22 [History] Ezetimibe [Zetia] 10 mg PO DAILY 01/10/22 [History] Omeprazole 20 mg PO DAILY 01/10/22 [History] Potassium Chloride ER [K-Dur 20] 20 meq PO BID 01/10/22 [History] Sertraline [Zoloft] 100 mg PO DAILY 01/10/22 [History] lisinopriL [Prinivil] 10 mg PO DAILY 01/10/22 [History] Ibuprofen [Motrin] 600 mg PO Q8HR PRN #30 tab 01/13/22 [Rx] traMADol HCl [Ultram] 100 mg PO Q8HR PRN 3 Days #9 tab 01/13/22 [Rx] Follow up Appointment(s)/Referral(s): Ferny Miller MD [REFERRING] - 1-2 Days Isabel Zeng MD [STAFF PHYSICIAN] - 1 Week (I left a message on the Doctor's office voicemail with Pt phone number and asked the office to call to make an appointment. ) Jb Sandoval MD [STAFF PHYSICIAN] - 01/24/22 2:00 pm Patient Instructions/Handouts: Heart Healthy Diet (DC), Basic Carbohydrate Counting (DC), Laparoscopic Cholecystectomy (DC) Activity/Diet/Wound Care/Special Instructions: Activity: As tolerated. Take breaks as needed. Diet: Heart healthy and carb consistent diet. Avoid salts, or foods with hidden salts such as canned or boxed foods and frozen dinners. Extra salt makes your heart work harder and traps the fluid in your body for longer. Special Instructions: Take all of your medications as directed and remember to keep all of your doctor's appointments and follow-up as needed. No driving while taking Ultram No lifting over 10 pounds You may shower. No soaking or tub baths for 2 weeks Very light activity until you are reevaluated at your follow up appointment with your surgeon Thank you for allowing us to participate in your care, it was truly a pleasure having you for our patient!!! Discharge Disposition: HOME SELF-CARE
[2022-01-13 10:52] LABS: HGB 10.3 g/dL (12.0-15.0); MCHC 31.2 g/dL (32.0-37.0); Mean Platelet Volume 11.5 fL (9.5-12.2); NRBC Per 100 WBC 0 /100 WBCS (0.0-0.0); Platelet Count 160 X 10*3/uL (140-440); RBC 3.55 X 10*6/uL (4.10-5.20); RDW 16.2 % (11.5-14.5); WBC 10.19 X 10*3/uL (4.50-10.00)
[2022-01-13 11:08] LABS: Magnesium 2.2 mg/dL (1.5-2.4)
[2022-01-13 11:09] LABS: African American GFR (CKD) 109.9 (60.0-200.0); Albumin 2.8 g/dL (3.8-4.9); Albumin/Globulin Ratio 1.4 (1.60-3.17); Anion Gap 8.1 mmol/L (10.00-18.00); BUN/Creat Ratio 7.14 Ratio (12.00-20.00); Calcium 8.2 mg/dL (8.7-10.3); Carbon Dioxide 25.9 mmol/L (20.0-27.5); Non-African American GFR(CKD) 94.8 (60.0-200.0); Potassium 3.8 mmol/L (3.5-5.5); Total Bilirubin 0.4 mg/dL (0.30-1.20); Total Protein 4.8 g/dL (6.2-8.2)
== END 2022-01-13 13:38 | disposition home or self-care (01) | DRG 417 ==
LOC: EC 20:00 → 6NMEDSUR 01-10 03:15 → OBSVTOIN 01-11 17:51 → 6NMEDSUR 01-12 16:39
PROVIDERS: ADMIT Internal Medicine; ATTEND Internal Medicine
PROC: 0FT44ZZ Resection of Gallbladder, Percutaneous Endoscopic Approach (ICD-10-PCS; principal; 2022-01-11 14:15)
DX: K81.9 Cholecystitis, unspecified (principal); K85.90 Acute pancreatitis without necrosis or infection, unspecified; E87.1 Hypo-osmolality and hyponatremia; E86.0 Dehydration; K52.9 Noninfective gastroenteritis and colitis, unspecified; K75.9 Inflammatory liver disease, unspecified; I10 Essential (primary) hypertension; K21.9 Gastro-esophageal reflux disease without esophagitis; E87.6 Hypokalemia; E83.42 Hypomagnesemia; E87.5 Hyperkalemia; F41.9 Anxiety disorder, unspecified; Z79.899 Other long term (current) drug therapy
CPT/HCPCS: 36415; 70450; 76705; 80053; 80074; 83605; 83690; 83735; 84100; 84132; 84484; 85025; 85027; 85610; 87324; 88304; 96361; 96374; 96375; 99285

== ENCOUNTER 2022-01-21 15:38 | Inpatient (IN) | payer OTHER ==
[2022-01-21] MEDS ORDERED: SODIUM CHLORIDE 0.9% 1,000 ML IV STA ×3 (16:19→19:46)
[2022-01-21 16:24] LABS: Basophils % (A) 1 %; Eosinophils # (A) 0.4 k/uL (0-0.7); Eosinophils % (A) 5 %; HCT 39.7 % (34.0-46.0); HGB 12.6 gm/dL (11.4-16.0); Hypochromasia Slight; Lymphocytes # (A) 1.3 k/uL (1.0-4.8); Lymphocytes % (A) 17 %; MCH 28.7 pg (25.0-35.0); MCHC 31.7 g/dL (31.0-37.0); MCV 90.4 fL (80.0-100.0); Mean Platelet Volume 7.7; Monocytes # (A) 0.5 k/uL (0-1.0); Monocytes % (A) 6 %; Neutrophils # (A) 5.2 k/uL (1.3-7.7); Neutrophils % (A) 69 %; RBC 4.39 m/uL (3.80-5.40); RDW 15.5 % (11.5-15.5); WBC 7.6 k/uL (3.8-10.6)
[2022-01-21 16:25] LABS: Platelet Count 400 k/uL (150-450)
[2022-01-21 16:27] LABS: ALT 118 U/L (4-34); AST 200 U/L (14-36); African American GFR (CKD) >90 (>60 ml/min/1.73 sqM); Albumin 3.7 g/dL (3.5-5.0); Alkaline Phosphatase 358 U/L (38-126); Anion Gap 18 mmol/L; Blood Urea Nitrogen 6 mg/dL (7-17); Calcium 8.6 mg/dL (8.4-10.2); Carbon Dioxide 19 mmol/L (22-30); Chloride 103 mmol/L (98-107); Glucose 130 mg/dL (74-99); Non-African American GFR(CKD) >90 (>60 ml/min/1.73 sqM); Potassium 3.8 mmol/L (3.5-5.1); Sodium 140 mmol/L (137-145); Total Bilirubin 0.4 mg/dL (0.2-1.3); Total Protein 6.7 g/dL (6.3-8.2)
--- NOTE | 2022-01-21 16:30 | ED ---
General Adult HPI - General Chief complaint: Recheck/Abnormal Lab/Rx Stated complaint: Abnormal Labs Time Seen by Provider: 01/21/22 16:10 Source: patient, RN notes reviewed Mode of arrival: ambulatory Limitations: no limitations - History of Present Illness Initial comments: This is a 57-year-old female who presents to the emergency Department with com plaints of generalized weakness and loss of appetite. Patient states she was hospitalized 1 week ago and had her gallbladder removed at that time. States she has had minimal oral intake since discharge home from the hospital and was seen by her PCP who recommended she come to the emergency department inpatient hospitalization due to hypokalemia. Patient states she has had diarrhea daily. Has not taken anything to treat her symptoms. Denies fever, chills, headache, chest pain, palpitations, shortness of breath, vomiting, dysuria, hematuria, or lower extremity edema. - Related Data Home Medications Medication Instructions Recorded Confirmed Clotrimazole/Betameth Cream 1 applic TOPICAL BID 01/10/22 01/21/22 [Lotrisone] Ezetimibe [Zetia] 10 mg PO DAILY 01/10/22 01/21/22 Omeprazole 20 mg PO DAILY 01/10/22 01/21/22 Potassium Chloride ER [K-Dur 20] 20 meq PO BID 01/10/22 01/21/22 Sertraline [Zoloft] 100 mg PO DAILY 01/10/22 01/21/22 lisinopriL [Prinivil] 10 mg PO DAILY 01/10/22 01/21/22 Previous Rx's Medication Instructions Recorded Ibuprofen [Motrin] 600 mg PO Q8HR PRN #30 tab 01/13/22 traMADol HCl [Ultram] 100 mg PO Q8HR PRN 3 Days #9 tab 01/13/22 Allergies Allergy/AdvReac Type Severity Reaction Status Date / Time No Known Allergies Allergy Verified 01/21/22 21:57 Review of Systems ROS Statement: Those systems with pertinent positive or pertinent negative responses have been documented in the HPI. ROS Other: All systems not noted in ROS Statement are negative. Past Medical History Past Medical History: GERD/Reflux, Hypertension Additional Past Medical History / Comment(s): Brain bleed in august 2021 History of Any Multi-Drug Resistant Organisms: None Reported Past Surgical History: No Surgical Hx Reported Past Anesthesia/Blood Transfusion Reactions: No Reported Reaction Past Psychological History: Anxiety Smoking Status: Never smoker Past Alcohol Use History: Rare Past Drug Use History: None Reported - Past Family History Family Additional Family Medical History / Comment(s): Denies any history of CAD in the family General Exam Limitations: no limitations General appearance: alert, in no apparent distress (This is an ill-appearing, well-developed female in no acute distress. Initial temperature 98.1, pulse 140, recheck 123, respirations 22, blood pressure 102/72, pulse ox 95% on room air.) Eye exam: Present: normal appearance, PERRL, EOMI. Absent: scleral icterus, conjunctival injection ENT exam: Present: mucous membranes dry Respiratory exam: Present: normal lung sounds bilaterally. Absent: respiratory distress, wheezes, rales, rhonchi, stridor, chest wall tenderness Cardiovascular Exam: Present: tachycardia, normal heart sounds GI/Abdominal exam: Present: soft, distended (mildly distended, soft abdomen), normal bowel sounds, other (Laparoscopic surgical incision sites appear to be healing well with no erythema or drainage). Absent: tenderness, guarding, rebound, rigid Extremities exam: Present: normal inspection, full ROM, normal capillary refill. Absent: pedal edema Back exam: Absent: CVA tenderness (R), CVA tenderness (L) Neurological exam: Present: alert, oriented X3 Psychiatric exam: Present: flat affect Skin exam: Present: warm, dry, pallor Course Vital Signs 01/21/22 01/21/22 01/21/22 15:42 19:14 21:12 Temperature 98.1 F Pulse Rate 140 H 113 H 98 Respiratory 22 18 18 Rate Blood Pressure 102/72 101/66 108/59 O2 Sat by Pulse 95 95 Oximetry 01/21/22 21:23 Temperature Pulse Rate 107 H Respiratory Rate Blood Pressure O2 Sat by Pulse 94 L Oximetry - Reevaluation(s) Reevaluation #1: 01/21/22 18:45 Upon reassessment, patient is resting more comfortably. States she is feeling somewhat improved after the fluids and pain medicine. No improvement or change in appetite. Current vital signs: T=98.1, UV=654, RR=18, UV=367/70, SpO2=97%% room air. PE: alert and oriented x4; following commands appropriately; lung sounds CTA with no increased work of breathing; heart rate and rhythm regular; abdomen soft and non-tender- no diarrhea while present in ED. 01/21/22 20:[address] Garcia who agrees to accept this patient. Medical Decision Making - Medical Decision Making This is an ill-appearing 57-year-old female with a history of the brain bleeding and hypertension who presents to the emergency department for evaluation of generalized weakness and loss of appetite. Upon exam, patient appears to be feeling poorly but is in no acute distress. She arrives tachycardic with a heart rate in the 140s, though has been afebrile. Patient was given IV fluids. Laboratory studies were obtained. Her initial lactic acid is elevated 3.5; this is most likely due to dehydration rather than an infectious process. However, patient was given 30ml/kg bolus. Liver enzymes are elevated and compared with previous admission. CT of the abdomen and pelvis shows no dilated, but fatty liver infiltrate is noted. Morphine and Zofran were given with some improvement as well. Given patient's physical exam findings and laboratory studies, she will be admitted to the hospital for IV fluids. I spoke with Dr. Garcia who agrees to accept this admission. Patient is agreeable with this plan of care. Attending: DR. Dyson. - Lab Data Result diagrams: 01/21/22 15:50 01/21/22 15:50 Lab Results 01/21/22 01/21/22 01/21/22 Range/Units 15:50 15:50 15:50 WBC 7.6 (3.8-10.6) k/uL RBC 4.39 (3.80-5.40) m/uL Hgb 12.6 (11.4-16.0) gm/dL Hct 39.7 (34.0-46.0) % MCV 90.4 (80.0-100.0) fL MCH 28.7 (25.0-35.0) pg MCHC 31.7 (31.0-37.0) g/dL RDW 15.5 (11.5-15.5) % Plt Count 400 D (150-450) k/uL MPV 7.7 Neutrophils % 69 % Lymphocytes % 17 % Monocytes % 6 % Eosinophils % 5 % Basophils % 1 % Neutrophils # 5.2 (1.3-7.7) k/uL Lymphocytes # 1.3 (1.0-4.8) k/uL Monocytes # 0.5 (0-1.0) k/uL Eosinophils # 0.4 (0-0.7) k/uL Basophils # 0.0 (0-0.2) k/uL Hypochromasia Slight PT (9.0-12.0) sec INR (<1.2) APTT (22.0-30.0) sec Sodium 140 (137-145) mmol/L Potassium 3.8 (3.5-5.1) mmol/L Chloride 103 (98-107) mmol/L Carbon Dioxide 19 L (22-30) mmol/L Anion Gap 18 mmol/L BUN 6 L (7-17) mg/dL Creatinine 0.51 L (0.52-1.04) mg/dL Est GFR (CKD-EPI)AfAm >90 (>60 ml/min/1.73 sqM) Est GFR (CKD-EPI)NonAf >90 (>60 ml/min/1.73 sqM) Glucose 130 H (74-99) mg/dL Lactic Ac Sepsis Rflx Plasma Lactic Acid Man (0.7-2.0) mmol/L Calcium 8.6 (8.4-10.2) mg/dL Magnesium (1.6-2.3) mg/dL Total Bilirubin 0.4 (0.2-1.3) mg/dL AST 200 H (14-36) U/L ALT 118 H (4-34) U/L Alkaline Phosphatase 358 H (38-126) U/L Troponin I <0.012 (0.000-0.034) ng/mL Total Protein 6.7 (6.3-8.2) g/dL Albumin 3.7 (3.5-5.0) g/dL Lipase (23-300) U/L Urine Color Urine Appearance (Clear) Urine pH (5.0-8.0) Ur Specific [place] (1.001-1.035) Urine Protein (Negative) Urine Glucose (UA) (Negative) Urine Ketones (Negative) Urine Blood (Negative) Urine Nitrite (Negative) Urine Bilirubin (Negative) Urine Urobilinogen (<2.0) mg/dL Ur Leukocyte Esterase (Negative) 01/21/22 01/21/22 01/21/22 Range/Units 15:50 15:50 16:35 WBC (3.8-10.6) k/uL RBC (3.80-5.40) m/uL Hgb (11.4-16.0) gm/dL Hct (34.0-46.0) % MCV (80.0-100.0) fL MCH (25.0-35.0) pg MCHC (31.0-37.0) g/dL RDW (11.5-15.5) % Plt Count (150-450) k/uL MPV Neutrophils % % Lymphocytes % % Monocytes % % Eosinophils % % Basophils % % Neutrophils # (1.3-7.7) k/uL Lymphocytes # (1.0-4.8) k/uL Monocytes # (0-1.0) k/uL Eosinophils # (0-0.7) k/uL Basophils # (0-0.2) k/uL Hypochromasia PT 10.1 (9.0-12.0) sec INR 0.9 (<1.2) APTT 22.3 (22.0-30.0) sec Sodium (137-145) mmol/L Potassium (3.5-5.1) mmol/L Chloride (98-107) mmol/L Carbon Dioxide (22-30) mmol/L Anion Gap mmol/L BUN (7-17) mg/dL Creatinine (0.52-1.04) mg/dL Est GFR (CKD-EPI)AfAm (>60 ml/min/1.73 sqM) Est GFR (CKD-EPI)NonAf (>60 ml/min/1.73 sqM) Glucose (74-99) mg/dL Lactic Ac Sepsis Rflx Plasma Lactic Acid Man (0.7-2.0) mmol/L Calcium (8.4-10.2) mg/dL Magnesium 1.8 (1.6-2.3) mg/dL Total Bilirubin (0.2-1.3) mg/dL AST (14-36) U/L ALT (4-34) U/L Alkaline Phosphatase (38-126) U/L Troponin I (0.000-0.034) ng/mL Total Protein (6.3-8.2) g/dL Albumin (3.5-5.0) g/dL Lipase 312 H (23-300) U/L Urine Color Urine Appearance (Clear) Urine pH (5.0-8.0) Ur Specific [place] (1.001-1.035) Urine Protein (Negative) Urine Glucose (UA) (Negative) Urine Ketones (Negative) Urine Blood (Negative) Urine Nitrite (Negative) Urine Bilirubin (Negative) Urine Urobilinogen (<2.0) mg/dL Ur Leukocyte Esterase (Negative) 01/21/22 01/21/22 01/21/22 Range/Units 16:35 16:56 17:01 WBC (3.8-10.6) k/uL RBC (3.80-5.40) m/uL Hgb (11.4-16.0) gm/dL Hct (34.0-46.0) % MCV (80.0-100.0) fL MCH (25.0-35.0) pg MCHC (31.0-37.0) g/dL RDW (11.5-15.5) % Plt Count (150-450) k/uL MPV Neutrophils % % Lymphocytes % % Monocytes % % Eosinophils % % Basophils % % Neutrophils # (1.3-7.7) k/uL Lymphocytes # (1.0-4.8) k/uL Monocytes # (0-1.0) k/uL Eosinophils # (0-0.7) k/uL Basophils # (0-0.2) k/uL Hypochromasia PT (9.0-12.0) sec INR (<1.2) APTT (22.0-30.0) sec Sodium (137-145) mmol/L Potassium (3.5-5.1) mmol/L Chloride (98-107) mmol/L Carbon Dioxide (22-30) mmol/L Anion Gap mmol/L BUN (7-17) mg/dL Creatinine (0.52-1.04) mg/dL Est GFR (CKD-EPI)AfAm (>60 ml/min/1.73 sqM) Est GFR (CKD-EPI)NonAf (>60 ml/min/1.73 sqM) Glucose (74-99) mg/dL Lactic Ac Sepsis Rflx Y Plasma Lactic Acid Man 3.5 H* (0.7-2.0) mmol/L Calcium (8.4-10.2) mg/dL Magnesium (1.6-2.3) mg/dL Total Bilirubin (0.2-1.3) mg/dL AST (14-36) U/L ALT (4-34) U/L Alkaline Phosphatase (38-126) U/L Troponin I (0.000-0.034) ng/mL Total Protein (6.3-8.2) g/dL Albumin (3.5-5.0) g/dL Lipase (23-300) U/L Urine Color Yellow Urine Appearance Clear (Clear) Urine pH 6.0 (5.0-8.0) Ur Specific [place] 1.013 (1.001-1.035) Urine Protein Negative (Negative) Urine Glucose (UA) Negative (Negative) Urine Ketones Negative (Negative) Urine Blood Negative (Negative) Urine Nitrite Negative (Negative) Urine Bilirubin Negative (Negative) Urine Urobilinogen <2.0 (<2.0) mg/dL Ur Leukocyte Esterase Negative (Negative) - EKG Data EKG shows normal: sinus rhythm Rate: tachycardia EKG Comments: EKG obtained at 1550 shows sinus tachycardia with nonspecific ST and T wave abnormality. Ventricular rate 133, AR interval 131, QRS duration 70, QT/QTC 332/410. Interpretation: Abnormal rhythm ECG. - Radiology Data Radiology results: report reviewed, image reviewed Two-view chest x-ray was obtained. Report was reviewed in its entirety. Impression per Dr. Rosen is no active cardiopulmonary disease. Normal hea rt. CT of the abdomen and pelvis with contrast was obtained. Report was reviewed in its entirety. Impression per Dr. Rosen as normal appendix. Fatty infiltration of the liver. Hiatal hernia. No dilated ducts. Disposition Clinical Impression: Dehydration, Appetite loss, Lactic acidosis Disposition: ADMITTED IP TO THIS HOSP Condition: Serious
[2022-01-21 16:51] LABS: INR 0.9 (<1.2); Partial Thromboplastin Time 22.3 sec (22.0-30.0); Prothrombin Time 10.1 sec (9.0-12.0)
--- NOTE | 2022-01-21 16:59 | XR ---
EXAMINATION TYPE: XR chest 2V DATE OF EXAM: 01/21/2022 COMPARISON: NONE HISTORY: Weakness TECHNIQUE: 2 views FINDINGS: Heart is normal. Lungs are clear of infiltrate. No heart failure. There are no hilar masses . Costophrenic angles are clear. Bony thorax is intact. There is hiatal hernia. IMPRESSION: No active cardiopulmonary disease. Normal heart.
[2022-01-21] MEDS ORDERED: MORPHINE SULFATE 4 MG/ML SYRINGE IVP STA (17:47)
[2022-01-21] MEDS ORDERED: ONDANSETRON 4 MG/2 ML VIAL IVP STA (17:47)
--- NOTE | 2022-01-21 18:54 | CT ---
EXAMINATION TYPE: CT abdomen pelvis w con DATE OF EXAM: 01/21/2022 COMPARISON: None HISTORY: h/o cholecystectomy, abnormal labs CT DLP: 695.6 mGycm Automated exposure control for dose reduction was used. CONTRAST: Performed with IV Contrast, patient injected with 100 mL of Isovue 300. Images obtained from the diaphragm to the floor the pelvis with IV contrast. There is some mild subsegmental atelectasis at the lung bases. Heart size is normal. No pericardial e ffusion. There is hiatal hernia. No pleural effusion. There is diffuse fatty infiltration of the liver. Bile duct are not dilated. Gallbladder appears abse nt. Spleen is intact. No pancreatic mass. The stomach is intact. There is no adrenal mass. Kidneys have normal size and contour. No hydronephrosis. Ureters are not di lated. No retroperitoneal adenopathy. Bladder distends smoothly. No inguinal hernia. No free fluid in the pelvis. No pelvic mass. No mesenteric edema. No ascites or free air. No sign of a bowel obstruction. The lumbar vertebrae hav e normal alignment. Disc spaces are fairly normal. No compression fracture. The bony pelvis is intact . The hip joints appear intact. Sacroiliac joints are normal. Appendix is medial and appears normal. IMPRESSION: Normal appendix. Fatty infiltration of the liver. Hiatal hernia. No dilated ducts.
[2022-01-21] MEDS ORDERED: HYDROmorphone 0.5 MG/0.5 ML SYRINGE IVP STA (19:46)
[2022-01-21] MEDS ORDERED: ONDANSETRON 4 MG/2 ML VIAL IVP PRN (19:54)
[2022-01-21] MEDS ORDERED: NALOXONE 0.4 MG/ML 1 ML VIAL IV PRN (19:54)
[2022-01-21] MEDS ORDERED: KETOROLAC 15 MG/ML 1 ML VIAL IVP PRN (19:54)
[2022-01-21] MEDS ORDERED: ACETAMINOPHEN TAB 325 MG TAB PO PRN (19:54)
[2022-01-21 20:42] LABS: Appearance,Urine Clear (Clear); Bilirubin,Urine Negative (Negative); Blood,Urine Negative (Negative); Color,Urine Yellow; Glucose,Urine (UA) Negative (Negative); Ketones,Urine Negative (Negative); Leukocyte Esterase,Urine Negative (Negative); Nitrite,Urine Negative (Negative); Protein,Urine Negative (Negative); Specific Gravity,Urine 1.013 (1.001-1.035); Urobilinogen,Urine <2.0 mg/dL (<2.0)
[2022-01-21] MEDS: SODIUM CHLORIDE 0.9% 1,000 ML IV SCH (21:01)
[2022-01-21] MEDS: FAMOTIDINE 20 MG TAB PO SCH (21:11)
[2022-01-21] MEDS: HYDROmorphone 0.5 MG/0.5 ML SYRINGE IVP PRN (23:14)
[2022-01-22] MEDS ORDERED: LOPERAMIDE 2 MG CAP PO PRN (02:05)
--- NOTE | 2022-01-22 02:05 | P.HPIM ---
History of Present Illness H&P Date: 01/21/22 Chief Complaint: Generalized weakness 57-year-old female with hypertension hyperlipidemia Patient comes in the hospital 1 week after her surgery where she was hospitalized nor facility had a lap choly. Since then she had a decrease in her appetite with generalized fatigue and weakness along with occasional vomiting and chronic diarrhea that's been going on for over a month. She denies any GI bleeding denies any fevers or chills denies any coughing denies chest pain or trouble breathing. She was getting progressively weak today she went to her primary care doctor who advised her to go to the hospital for evaluation. Workup in the ED showed elevated liver enzymes elevated lactic acid and possible dehydration. Patient was initiated on IV fluids and admitted for surgery evaluation due to elevated liver enzymes postcholecystectomy C. diff result came back negative Patient denies any tobacco smoking or illicit drugs or heavy alcohol consumption. Patient lives alone. Review of Systems Pertinent positives as noted in HPI. All other systems were reviewed and are negative Past Medical History Past Medical History: GERD/Reflux, Hypertension Additional Past Medical History / Comment(s): Brain bleed in august 2021 History of Any Multi-Drug Resistant Organisms: None Reported Past Surgical History: No Surgical Hx Reported Past Anesthesia/Blood Transfusion Reactions: No Reported Reaction Past Psychological History: Anxiety Smoking Status: Never smoker Past Alcohol Use History: Rare Past Drug Use History: None Reported - Past Family History Family Additional Family Medical History / Comment(s): Denies any history of CAD in the family Medications and Allergies Home Medications Medication Instructions Recorded Confirmed Type Clotrimazole/Betameth Cream 1 applic TOPICAL BID 01/10/22 01/21/22 History [Lotrisone] Ezetimibe [Zetia] 10 mg PO DAILY 01/10/22 01/21/22 History Omeprazole 20 mg PO DAILY 01/10/22 01/21/22 History Potassium Chloride ER [K-Dur 20] 20 meq PO BID 01/10/22 01/21/22 History Sertraline [Zoloft] 100 mg PO DAILY 01/10/22 01/21/22 History lisinopriL [Prinivil] 10 mg PO DAILY 01/10/22 01/21/22 History Ibuprofen [Motrin] 600 mg PO Q8HR PRN #30 tab 01/13/22 01/21/22 Rx traMADol HCl [Ultram] 100 mg PO Q8HR PRN 3 Days #9 tab 01/13/22 01/21/22 Rx Allergies Allergy/AdvReac Type Severity Reaction Status Date / Time No Known Allergies Allergy Verified 01/21/22 21:57 Physical Exam Vitals: Vital Signs Temp Pulse Resp BP Pulse Ox 01/21/22 21:23 107 H 94 L 01/21/22 21:12 98 18 108/59 01/21/22 19:14 113 H 18 101/66 95 01/21/22 15:42 98.1 F 140 H 22 102/72 95 Intake and Output 01/21/22 01/21/22 01/22/22 14:59 22:59 06:59 Other: Weight 54.431 kg Constitutional: No acute distress, conversant, pleasant Eyes: Anicteric sclerae, moist conjunctiva, Pupils equal round reactive to light ENMT: NC/AT Oropharynx clear, no erythema, or exudates Neck: Supple, no masses, or JVD No carotid bruits No thyromegaly Lungs: Clear to auscultation Clear to percussion Normal respiratory effort, no accessory muscle use Cardiovascular: Heart regular in rate and rhythm, No murmurs, gallops, or rubs No peripheral edema Abdominal: Soft Epigastric discomfort to deep palpation, no guarding, rebound or rigidity Abdomen moving with respiration Normoactive bowel sounds No hepatomegaly, No splenomegaly No palpable mass No abdominal wall hernia noted Skin: Normal temperature, tone, texture, turgor No induration No subcutaneous nodules No rash, lesions No ulcers Extremities: No digital cyanosis No clubbing Pedal pulses intact and symmetrical Radial pulses intact and symmetrical No calf tenderness Psychiatric: Alert and oriented to person, place and time Appropriate affect fair judgement Neuro Muscles Strength 4/5 in all 4 extremities Sensation to light touch grossly present throughout Cranial nerves II-XII grossly intact No focal sensory deficits Lymphatics: no palpable cervical or supraclavicular , lymph nodes Results CBC & Chem 7: 01/21/22 15:50 01/21/22 15:50 Labs: Abnormal Lab Results - Last 24 Hours (Table) 01/21/22 01/21/22 01/21/22 Range/Units 15:50 15:50 16:35 Carbon Dioxide 19 L (22-30) mmol/L BUN 6 L (7-17) mg/dL Creatinine 0.51 L (0.52-1.04) mg/dL Glucose 130 H (74-99) mg/dL Plasma Lactic Acid Man 3.5 H* (0.7-2.0) mmol/L AST 200 H (14-36) U/L ALT 118 H (4-34) U/L Alkaline Phosphatase 358 H (38-126) U/L Lipase 312 H (23-300) U/L 01/21/22 01/21/22 Range/Units 21:19 23:54 Carbon Dioxide (22-30) mmol/L BUN (7-17) mg/dL Creatinine (0.52-1.04) mg/dL Glucose (74-99) mg/dL Plasma Lactic Acid Man 3.5 H* 2.8 H* (0.7-2.0) mmol/L AST (14-36) U/L ALT (4-34) U/L Alkaline Phosphatase (38-126) U/L Lipase (23-300) U/L Assessment and Plan Assessment: Generalized weakness Chronic diarrhea with occasional vomiting Dehydration and lactic acidosis Elevated liver enzymes status post 1 week after lap shana Plan Avoid hepatotoxic meds IV fluid hydration normal saline C. diff results negative Gen. surgery consultation to follow up post lap collie due to elevated liver enzymes Supportive care Encourage by mouth intake Symptomatic control of nausea vomiting and diarrhea Monitor lactic acid level PPI daily Hypertension resume lisinopril and amlodipine Hyperlipidemia hold statin secondary to elevated liver enzymes Full code DVT prophylaxis heparin subcu 3 times a day
[2022-01-22] MEDS: HYDROmorphone 0.5 MG/0.5 ML SYRINGE IVP PRN ×7 (02:30→22:06)
[2022-01-22 03:27] LABS: Basophils % (A) 0 %; Eosinophils # (A) 0.3 k/uL (0-0.7); Eosinophils % (A) 4 %; HCT 32.2 % (34.0-46.0); HGB 10.2 gm/dL (11.4-16.0); Hypochromasia Moderate; Lymphocytes # (A) 1.1 k/uL (1.0-4.8); Lymphocytes % (A) 14 %; MCH 29.1 pg (25.0-35.0); MCHC 31.8 g/dL (31.0-37.0); MCV 91.6 fL (80.0-100.0); Monocytes # (A) 0.4 k/uL (0-1.0); Monocytes % (A) 5 %; Neutrophils # (A) 6.1 k/uL (1.3-7.7); Neutrophils % (A) 75 %; Platelet Count 257 k/uL (150-450); RBC 3.52 m/uL (3.80-5.40); RDW 15.7 % (11.5-15.5); WBC 8.1 k/uL (3.8-10.6)
[2022-01-22 03:32] LABS: ALT 95 U/L (4-34); AST 207 U/L (14-36); African American GFR (CKD) >90 (>60 ml/min/1.73 sqM); Albumin 2.9 g/dL (3.5-5.0); Albumin/Globulin Ratio 1.2; Alkaline Phosphatase 315 U/L (38-126); Anion Gap 5 mmol/L; Blood Urea Nitrogen 5 mg/dL (7-17); Calcium 7.7 mg/dL (8.4-10.2); Carbon Dioxide 25 mmol/L (22-30); Chloride 105 mmol/L (98-107); Globulin 2.4 g/dL; Glucose 98 mg/dL (74-99); Non-African American GFR(CKD) >90 (>60 ml/min/1.73 sqM); Sodium 135 mmol/L (137-145); Total Bilirubin 0.7 mg/dL (0.2-1.3); Total Protein 5.3 g/dL (6.3-8.2)
[2022-01-22] MEDS: SODIUM CHLORIDE 0.9% 1,000 ML IV SCH ×2 (05:34→10:42)
[2022-01-22] MEDS: FAMOTIDINE 20 MG TAB PO SCH ×2 (07:58→22:08)
[2022-01-22] MEDS: SERTRALINE 100 MG TAB PO SCH (07:59)
[2022-01-22] MEDS: PANTOPRAZOLE 40 MG TABLET PO SCH (07:59)
[2022-01-22] MEDS: HEPARIN SODIUM,PORCINE/PF 5,000 UNIT/0.5 ML SYRINGE SQ SCH ×2 (07:59→17:34)
[2022-01-22] MEDS: lisinopriL 10 MG TAB PO SCH (07:59)
--- NOTE | 2022-01-22 13:13 | P.PN ---
Subjective Progress Note Date: 01/22/22 The patient was seen at bedside, reports her abdominal pain is getting better. She had 4 bowel movements since this morning. Objective - Vital Signs Vital signs: Vital Signs Temp 98.5 F 01/22/22 07:00 Pulse 99 01/22/22 12:01 Resp 18 01/22/22 12:01 BP 148/87 01/22/22 12:01 Pulse Ox 95 01/22/22 12:01 FiO2 Intake & Output 01/21/22 01/22/22 01/22/22 18:59 06:59 18:59 Intake Total 520 Balance 520 Weight 54.431 kg Intake: IV 520 Sodium Chloride 0.9% 1, 520 000 ml @ 130 mls/hr IV . [facility] Rx#:[id number] Other: Voiding Method Bedside Commode # Voids 4 - Exam General: [non toxic], [mild distress], [appears at stated age] Derm: [warm], [dry] Head: [atraumatic], [normocephalic], [symmetric] Eyes: [EOMI], [no lid lag], [anicteric sclera] Mouth: [no lip lesion], [mucus membranes moist] Cardiovascular: [S1S2 reg], [no murmur], [positive posterior tibial pulse bilateral], Lungs: [CTA bilateral], [no rhonchi, no rales] , [no accessory muscle use] Abdominal: [soft], [ nontender to palpation], [no guarding], [no appreciable organomegaly] Ext: [no gross muscle atrophy], [no edema], [no contractures] Neuro: [ CN II-XI grossly intact], [no focal neuro deficits] Psych: [Alert], [oriented], [appropriate affect] - Labs CBC & Chem 7: 01/22/22 03:07 01/22/22 03:07 Labs: Abnormal Lab Results - Last 24 Hours (Table) 01/21/22 01/21/22 01/21/22 Range/Units 15:50 15:50 16:35 RBC (3.80-5.40) m/uL Hgb (11.4-16.0) gm/dL Hct (34.0-46.0) % RDW (11.5-15.5) % Sodium (137-145) mmol/L Carbon Dioxide 19 L (22-30) mmol/L BUN 6 L (7-17) mg/dL Creatinine 0.51 L (0.52-1.04) mg/dL Glucose 130 H (74-99) mg/dL Plasma Lactic Acid Man 3.5 H* (0.7-2.0) mmol/L Calcium (8.4-10.2) mg/dL AST 200 H (14-36) U/L ALT 118 H (4-34) U/L Alkaline Phosphatase 358 H (38-126) U/L Total Protein (6.3-8.2) g/dL Albumin (3.5-5.0) g/dL Lipase 312 H (23-300) U/L 01/21/22 01/21/22 01/22/22 Range/Units 21:19 23:54 03:07 RBC 3.52 L (3.80-5.40) m/uL Hgb 10.2 L (11.4-16.0) gm/dL Hct 32.2 L (34.0-46.0) % RDW 15.7 H (11.5-15.5) % Sodium (137-145) mmol/L Carbon Dioxide (22-30) mmol/L BUN (7-17) mg/dL Creatinine (0.52-1.04) mg/dL Glucose (74-99) mg/dL Plasma Lactic Acid Man 3.5 H* 2.8 H* (0.7-2.0) mmol/L Calcium (8.4-10.2) mg/dL AST (14-36) U/L ALT (4-34) U/L Alkaline Phosphatase (38-126) U/L Total Protein (6.3-8.2) g/dL Albumin (3.5-5.0) g/dL Lipase (23-300) U/L 01/22/22 01/22/22 01/22/22 Range/Units 03:07 03:07 06:52 RBC (3.80-5.40) m/uL Hgb (11.4-16.0) gm/dL Hct (34.0-46.0) % RDW (11.5-15.5) % Sodium 135 L (137-145) mmol/L Carbon Dioxide (22-30) mmol/L BUN 5 L (7-17) mg/dL Creatinine 0.46 L (0.52-1.04) mg/dL Glucose (74-99) mg/dL Plasma Lactic Acid Man 2.8 H* 2.4 H* (0.7-2.0) mmol/L Calcium 7.7 L (8.4-10.2) mg/dL AST 207 H (14-36) U/L ALT 95 H (4-34) U/L Alkaline Phosphatase 315 H (38-126) U/L Total Protein 5.3 L (6.3-8.2) g/dL Albumin 2.9 L (3.5-5.0) g/dL Lipase (23-300) U/L 01/22/22 Range/Units 11:04 RBC (3.80-5.40) m/uL Hgb (11.4-16.0) gm/dL Hct (34.0-46.0) % RDW (11.5-15.5) % Sodium (137-145) mmol/L Carbon Dioxide (22-30) mmol/L BUN (7-17) mg/dL Creatinine (0.52-1.04) mg/dL Glucose (74-99) mg/dL Plasma Lactic Acid Man 2.8 H* (0.7-2.0) mmol/L Calcium (8.4-10.2) mg/dL AST (14-36) U/L ALT (4-34) U/L Alkaline Phosphatase (38-126) U/L Total Protein (6.3-8.2) g/dL Albumin (3.5-5.0) g/dL Lipase (23-300) U/L Assessment and Plan Assessment: Generalized weakness Chronic diarrhea with occasional vomiting Dehydration and lactic acidosis Elevated liver enzymes status post 1 week after lap shana Plan Avoid hepatotoxic meds IV fluid hydration normal saline C. diff results negative Gen. surgery consultation to follow up post lap collie due to elevated liver enzymes Supportive care Encourage by mouth intake Symptomatic control of nausea vomiting and diarrhea Monitor lactic acid level PPI daily Hypertension resume lisinopril and amlodipine Hyperlipidemia hold statin secondary to elevated liver enzymes Full code DVT prophylaxis heparin subcu 3 times a day
--- NOTE | 2022-01-22 15:39 | P.GSCN ---
History of Present Illness Consult date: 01/22/22 History of present illness: REASON FOR CONSULTATION: Epigastric abdominal pain HISTORY OF PRESENT ILLNESS: The patient is a 57 year old female who comes in nausea, generalized fatigue, diarrhea. She plans of epigastric abdominal pain. She had recent cholecystectomy less than 2 weeks ago. She reports most of her symptoms started after having an acute neurological event 3-4 months ago in [facility]. She reports having chronic diarrhea since the past 3 months. Incidentally, she was diagnosed with cholecystitis and had a cholecystectomy. Patient reports losing her job and sleeping over 12+ hours daily due to her generalized malaise. She presents with elevated liver enzymes including elevated lipase. General surgery is consulted due to abdominal pain. She reports hospitalization at least 4 times in 3-4 months. PAST MEDICAL HISTORY: See list and reviewed PAST SURGICAL HISTORY: See list and reviewed MEDICATIONS: See list and reviewed ALLERGIES: See list and reviewed SOCIAL HISTORY: See list and reviewed FAMILY HISTORY: See list and reviewed REVIEW OF ORGAN SYSTEMS: CONSTITUTIONAL: No fevers or chills. Has weight loss over 40 pounds per patient in 3 months. Unintentional weight loss. EYES: Denies any trouble with vision. No glasses. HEENT: No difficulties with hearing. No nosebleeds. No difficulty swallowing. RESPIRATORY: Denies pneumonia. Denies any troubles with breathing or dyspnea on exertion. CARDIOVASCULAR: Has hypertensive heart disease. GASTROINTESTINAL: Recent cholecystectomy cholecystitis. Reports diarrhea. History of gastroesophageal reflux disease. GENITOURINARY: Denies any blood in urine or increased urinary frequency. NEUROLOGICAL: Denies any numbness or tingling along the distal extremities. No seizure disorders or headaches. MUSCULOSKELETAL: Denies any back pain, stiffness or joint arthritis. SKIN: No current skin cancer. No rash. PSYCHIATRIC: Has depressive disorder. Has anxiety disorder. ENDOCRINE: Denies current thyroid disorders. Denies any blood sugar glucose intolerance. HEME/LYMPHATIC: Denies any lumps and bumps around the neck. No recent deep venous thrombosis. ALLERGY/IMMUNOLOGY: No immunoglobulin therapy. No immune deficiencies. BREAST: Denies current breast lumps, pain or nipple discharge. PHYSICAL EXAM: VITALS: Reviewed CONSTITUTIONAL: Well developed and in no acute distress. EYES: Conjuctivae without sclera icterus. Extraocular movements grossly intact. HEAD, EARS, NOSE, THROAT: Moist buccal mucosa. Head is atraumatic, normocephalic. Hears conversational speech. No nasal drainage. NECK: Supple. No JV distention. No thyroidomegaly. RESPIRATORY: Non-labored respirations and equal bilateral excursions. No gross wheezes. CARDIOVASCULAR: Palpable 2+ radial pulses. ABDOMEN: No peritonitis. Mild epigastric tenderness. LYMPH: No neck lymphadenopathy. MUSCULOSKELETAL: Nail and fingers with good capillary refill. SKIN: Warm and well perfused with good skin turgor. NEUROLOGIC: Cranial nerves II through XII grossly intact. No focal or lateralizing signs. PSYCH: Appropriate affect. Alert and oriented to person, place and time. Displays appropriate insight. CLINCAL LABS: Reviewed. AST elevated 207. Total bilirubin normal 0.4. Alkaline phosphatase elevated. Lipase elevated at 312. Lactic acid elevated. IMAGING: Independently reviewed. CT of the abdomen and pelvis independent review demonstrates moderate size diaphragmatic hiatal hernia. No intra- abdominal fluid collection or biloma. This is my independent interpretation. RADIOLOGY: Report reviewed CT of the abdomen and pelvis demonstrating hiatal hernia. No biliary ductal dilatation. RECORDS: previous old records reviewed from recent hospitalization December 2021 demonstrates cholecystectomy including initial elevated liver enzymes. Acalculus cholecystitis on pathology. ASSESSMENT: 1. Elevated liver enzymes 2. Elevated lipase 3. Epigastric abdominal pain 4. Lactic acidosis 5. Chronic diarrhea PLAN: 1. May benefit from stool studies and assays due to chronic diarrhea. 2. May benefit from both upper and lower endoscopy due to presenting symptoms 3. Repeat chemistries including liver enzymes. ADVANCE DIRECTIVE: Thank you for this kind consultation. Past Medical History Past Medical History: GERD/Reflux, Hypertension Additional Past Medical History / Comment(s): Brain bleed in august 2021 History of Any Multi-Drug Resistant Organisms: None Reported Past Surgical History: Cholecystectomy Past Anesthesia/Blood Transfusion Reactions: No Reported Reaction Past Psychological History: Anxiety Smoking Status: Never smoker Past Alcohol Use History: Rare Past Drug Use History: None Reported - Past Family History Family Additional Family Medical History / Comment(s): Denies any history of CAD in the family Medications and Allergies Home Medications Medication Instructions Recorded Confirmed Type Clotrimazole/Betameth Cream 1 applic TOPICAL BID 01/10/22 01/21/22 History [Lotrisone] Ezetimibe [Zetia] 10 mg PO DAILY 01/10/22 01/21/22 History Omeprazole 20 mg PO DAILY 01/10/22 01/21/22 History Potassium Chloride ER [K-Dur 20] 20 meq PO BID 01/10/22 01/21/22 History Sertraline [Zoloft] 100 mg PO DAILY 01/10/22 01/21/22 History lisinopriL [Prinivil] 10 mg PO DAILY 01/10/22 01/21/22 History Ibuprofen [Motrin] 600 mg PO Q8HR PRN #30 tab 01/13/22 01/21/22 Rx traMADol HCl [Ultram] 100 mg PO Q8HR PRN 3 Days #9 tab 01/13/22 01/21/22 Rx Allergies Allergy/AdvReac Type Severity Reaction Status Date / Time No Known Allergies Allergy Verified 01/21/22 21:57 Surgical - Exam Vital Signs Temp Pulse Resp BP Pulse Ox 98.1 F 140 H 22 102/72 95 01/21/22 15:42 01/21/22 15:42 01/21/22 15:42 01/21/22 15:42 01/21/22 15:42 Results - Labs 01/22/22 03:07 01/22/22 03:07 Abnormal Lab Results - Last 24 Hours (Table) 01/21/22 01/21/22 01/21/22 Range/Units 15:50 15:50 16:35 RBC (3.80-5.40) m/uL Hgb (11.4-16.0) gm/dL Hct (34.0-46.0) % RDW (11.5-15.5) % Sodium (137-145) mmol/L Carbon Dioxide 19 L (22-30) mmol/L BUN 6 L (7-17) mg/dL Creatinine 0.51 L (0.52-1.04) mg/dL Glucose 130 H (74-99) mg/dL Plasma Lactic Acid Man 3.5 H* (0.7-2.0) mmol/L Calcium (8.4-10.2) mg/dL AST 200 H (14-36) U/L ALT 118 H (4-34) U/L Alkaline Phosphatase 358 H (38-126) U/L Total Protein (6.3-8.2) g/dL Albumin (3.5-5.0) g/dL Lipase 312 H (23-300) U/L 01/21/22 01/21/22 01/22/22 Range/Units 21:19 23:54 03:07 RBC 3.52 L (3.80-5.40) m/uL Hgb 10.2 L (11.4-16.0) gm/dL Hct 32.2 L (34.0-46.0) % RDW 15.7 H (11.5-15.5) % Sodium (137-145) mmol/L Carbon Dioxide (22-30) mmol/L BUN (7-17) mg/dL Creatinine (0.52-1.04) mg/dL Glucose (74-99) mg/dL Plasma Lactic Acid Man 3.5 H* 2.8 H* (0.7-2.0) mmol/L Calcium (8.4-10.2) mg/dL AST (14-36) U/L ALT (4-34) U/L Alkaline Phosphatase (38-126) U/L Total Protein (6.3-8.2) g/dL Albumin (3.5-5.0) g/dL Lipase (23-300) U/L 01/22/22 01/22/22 01/22/22 Range/Units 03:07 03:07 06:52 RBC (3.80-5.40) m/uL Hgb (11.4-16.0) gm/dL Hct (34.0-46.0) % RDW (11.5-15.5) % Sodium 135 L (137-145) mmol/L Carbon Dioxide (22-30) mmol/L BUN 5 L (7-17) mg/dL Creatinine 0.46 L (0.52-1.04) mg/dL Glucose (74-99) mg/dL Plasma Lactic Acid Man 2.8 H* 2.4 H* (0.7-2.0) mmol/L Calcium 7.7 L (8.4-10.2) mg/dL AST 207 H (14-36) U/L ALT 95 H (4-34) U/L Alkaline Phosphatase 315 H (38-126) U/L Total Protein 5.3 L (6.3-8.2) g/dL Albumin 2.9 L (3.5-5.0) g/dL Lipase (23-300) U/L 01/22/22 Range/Units 11:04 RBC (3.80-5.40) m/uL Hgb (11.4-16.0) gm/dL Hct (34.0-46.0) % RDW (11.5-15.5) % Sodium (137-145) mmol/L Carbon Dioxide (22-30) mmol/L BUN (7-17) mg/dL Creatinine (0.52-1.04) mg/dL Glucose (74-99) mg/dL Plasma Lactic Acid Man 2.8 H* (0.7-2.0) mmol/L Calcium (8.4-10.2) mg/dL AST (14-36) U/L ALT (4-34) U/L Alkaline Phosphatase (38-126) U/L Total Protein (6.3-8.2) g/dL Albumin (3.5-5.0) g/dL Lipase (23-300) U/L Microbiology - Last 24 Hours (Table) 01/21/22 22:17 Stool Culture - Preliminary Stool Diabetes panel 01/21/22 01/22/22 Range/Units 15:50 03:07 Sodium 140 135 L (137-145) mmol/L Potassium 3.8 4.0 (3.5-5.1) mmol/L Chloride 103 105 (98-107) mmol/L Carbon Dioxide 19 L 25 (22-30) mmol/L BUN 6 L 5 L (7-17) mg/dL Creatinine 0.51 L 0.46 L (0.52-1.04) mg/dL Glucose 130 H 98 (74-99) mg/dL Calcium 8.6 7.7 L (8.4-10.2) mg/dL AST 200 H 207 H (14-36) U/L ALT 118 H 95 H (4-34) U/L Alkaline Phosphatase 358 H 315 H (38-126) U/L Total Protein 6.7 5.3 L (6.3-8.2) g/dL Albumin 3.7 2.9 L (3.5-5.0) g/dL Calcium panel 01/21/22 01/22/22 Range/Units 15:50 03:07 Calcium 8.6 7.7 L (8.4-10.2) mg/dL Albumin 3.7 2.9 L (3.5-5.0) g/dL Pituitary panel 01/21/22 01/22/22 Range/Units 15:50 03:07 Sodium 140 135 L (137-145) mmol/L Potassium 3.8 4.0 (3.5-5.1) mmol/L Chloride 103 105 (98-107) mmol/L Carbon Dioxide 19 L 25 (22-30) mmol/L BUN 6 L 5 L (7-17) mg/dL Creatinine 0.51 L 0.46 L (0.52-1.04) mg/dL Glucose 130 H 98 (74-99) mg/dL Calcium 8.6 7.7 L (8.4-10.2) mg/dL Adrenal panel 01/21/22 01/22/22 Range/Units 15:50 03:07 Sodium 140 135 L (137-145) mmol/L Potassium 3.8 4.0 (3.5-5.1) mmol/L Chloride 103 105 (98-107) mmol/L Carbon Dioxide 19 L 25 (22-30) mmol/L BUN 6 L 5 L (7-17) mg/dL Creatinine 0.51 L 0.46 L (0.52-1.04) mg/dL Glucose 130 H 98 (74-99) mg/dL Calcium 8.6 7.7 L (8.4-10.2) mg/dL Total Bilirubin 0.4 0.7 (0.2-1.3) mg/dL AST 200 H 207 H (14-36) U/L ALT 118 H 95 H (4-34) U/L Alkaline Phosphatase 358 H 315 H (38-126) U/L Total Protein 6.7 5.3 L (6.3-8.2) g/dL Albumin 3.7 2.9 L (3.5-5.0) g/dL
[2022-01-23] MEDS: HYDROmorphone 0.5 MG/0.5 ML SYRINGE IVP PRN ×4 (01:13→23:24)
[2022-01-23] MEDS: HEPARIN SODIUM,PORCINE/PF 5,000 UNIT/0.5 ML SYRINGE SQ SCH ×4 (05:00→23:24)
[2022-01-23] MEDS: SODIUM CHLORIDE 0.9% 1,000 ML IV SCH ×3 (07:21→18:11)
[2022-01-23 09:32] LABS: African American GFR (CKD) 122.8 (60.0-200.0); Anion Gap 10.3 mmol/L (10.00-18.00); Calcium 8.3 mg/dL (8.7-10.3); Carbon Dioxide 24.7 mmol/L (20.0-27.5); Magnesium 1.7 mg/dL (1.5-2.4); Non-African American GFR(CKD) 105.9 (60.0-200.0); Phosphorus 2.7 mg/dL (2.4-5.1); Potassium 3.9 mmol/L (3.5-5.5)
[2022-01-23 09:38] LABS: Basophils # (A) 0.02 X 10*3/uL (0.00-0.10); Basophils % (A) 0.3 %; Eosinophils % (A) 9.3 %; HCT 30.7 % (37.2-46.3); HGB 9.8 g/dL (12.0-15.0); Immature Grans, Automated 0.4 %; Lymphocytes # (A) 1.06 X 10*3/uL (0.90-5.00); Lymphocytes % (A) 14.1 %; MCH 29.5 pg (27.0-32.0); MCHC 31.9 g/dL (32.0-37.0); MCV 92.5 fL (80.0-97.0); Mean Platelet Volume 10.8 fL (9.5-12.2); Monocytes # (A) 0.49 X 10*3/uL (0.20-1.00); Monocytes % (A) 6.5 %; NRBC Per 100 WBC 0 /100 WBCS (0.0-0.0); Neutrophils % (A) 69.4 %; Platelet Count 239 X 10*3/uL (140-440); RBC 3.32 X 10*6/uL (4.10-5.20); RDW 16.2 % (11.5-14.5)
[2022-01-23] MEDS: PANTOPRAZOLE 40 MG TABLET PO SCH (09:53)
[2022-01-23] MEDS: SERTRALINE 100 MG TAB PO SCH (09:53)
[2022-01-23] MEDS: FAMOTIDINE 20 MG TAB PO SCH ×2 (09:53→20:51)
[2022-01-23] MEDS: lisinopriL 10 MG TAB PO SCH (09:53)
[2022-01-23] MEDS ORDERED: MAGNESIUM OXIDE 400 MG TAB PO STA (10:20)
[2022-01-23 10:46] LABS: HCT 31.6 % (34.0-46.0); MCH 29.6 pg (25.0-35.0); MCV 93.4 fL (80.0-100.0); RBC 3.39 m/uL (3.80-5.40); WBC 6.6 k/uL (3.8-10.6)
[2022-01-23 10:47] LABS: Basophils % (A) 0 %; Eosinophils # (A) 0.7 k/uL (0-0.7); Eosinophils % (A) 11 %; Hypochromasia Marked; Lymphocytes # (A) 0.7 k/uL (1.0-4.8); Lymphocytes % (A) 11 %; MCHC 31.7 g/dL (31.0-37.0); Mean Platelet Volume 8.6; Monocytes # (A) 0.4 k/uL (0-1.0); Monocytes % (A) 6 %; Neutrophils # (A) 4.7 k/uL (1.3-7.7); Neutrophils % (A) 71 %; Platelet Count 230 k/uL (150-450); RDW 15.5 % (11.5-15.5)
--- NOTE | 2022-01-23 11:44 | P.PN ---
Subjective Progress Note Date: 01/23/22 Hospital course: Patient is a pleasant 57-year-old with a past medical history of hypertension, GERD, brain bleed in September 2021, chronic diarrhea since 09/2021, and recent laparoscopic cholecystectomy on 01/11/22. Patient presented to the emergency department with a chief complaint of generalized fatigue and weakness in which she reports resulting from uncontrolled chronic diarrhea. Patient underwent full evaluation in the emergency department. CBC, BMP, and coags unremarkable. Patient did have elevated lipase of 312 and elevated liver enzymes with AST of 200, ALT of 118, and alkaline phosphatase of 358. Lactic acid was also elevated at 2.8 decreasing down to 1.0 status post IV fluid bolus. CT abdomen and pelvis completed which was negative for acute intra-abdominal process showing normal appendix, fatty infiltration of liver, small hiatal hernia, no signs of bowel obstruction, and no dilated ducts. Patient was admitted under our services with consultation to general surgery and gastroenterology. Physical exam: Patient seen and fully evaluated at bedside. She reports continued weakness and continued diarrhea. Morning labs reviewed showing no significant abnormalities with the exception of hypomagnesemia with magnesium of 1.7, replaced. Liver enzymes yesterday's labs remain consistently elevated. General surgery evaluated recommending patient undergo an MRCP secondary to continued elevated LFTs. Stool cultures were ordered. Vital signs reviewed and stable. General: Nontoxic, no distress and appears older than stated age.. Derm: Skin warm and dry, normal coloration for ethnicity. Head: Atraumatic, normocephalic and symmetric. Eyes: EOMs intact, no lid lag, and anicteric sclera Mouth: no lip lesions, mucus membranes moist Cardiovascular: regular rate and rhythm with normal S1S2, no murmur, positive posterior tibial pulses bilaterally, and cap refill < 2 seconds. Lungs: Respirations even, regular, and unlabored on room air. Lungs CTA bilaterally, no rhonchi, no rales, no wheezing, and no accessory muscle usage. Abdominal: soft, nontender to palpation, no guarding, no appreciable organomegaly Ext: ROM intact. No gross muscle atrophy, no edema, no contractures Neuro: Speech clear, face symmetrical and CN II-XII grossly intact with no noted focal neuro deficits Psych: Alert and oriented to person, place, time, and situation. Appropriate and pleasant affect. Assessment and Plan of Care: Dehydration secondary to decreased oral intake and reports of chronic intractable diarrhea Generalized weakness secondary to above Transaminitis Acute Pancreatitis Intractable diarrhea Hyponatremia, resolved Hypomagnesemia Lactic acidosis, resolved -Gen. surgery following, recommending MRCP secondary to persistently elevated liver enzymes -Gastroenterology following, recommending hepatitis panel and stool cultures. -Symptomatic care and pain management. -Continuous IV fluid hydration and replacement of abnormal electrolyte values as needed -Regular diet and encourage Ensure 3 times daily between meals -Symptomatic care and pain management -Continue PPI with Protonix 40 mg daily Hypertension Monitor vital signs and continue daily medication regimen with lisinopril. CODE STATUS: Full code DVT prophylaxis: Heparin Discussed with: Patient and RN Anticipated discharge date: Likely within the next [address]: Home A total of 35 minutes was spent on the care of this complex patient more than 50% of the time was spent in counseling and care coordination Objective - Vital Signs Vital signs: Vital Signs Temp 98.2 F 01/23/22 07:00 Pulse 88 01/23/22 07:00 Resp 16 01/23/22 07:00 BP 155/78 01/23/22 07:00 Pulse Ox 93 L 01/23/22 07:00 FiO2 Intake & Output 01/22/22 01/23/22 01/23/22 18:59 06:59 18:59 Weight 54.431 kg Other: Voiding Method Toilet Toilet # Voids 1 3 - Labs CBC & Chem 7: 01/23/22 10:27 01/23/22 04:51 Labs: Abnormal Lab Results - Last 24 Hours (Table) 01/23/22 01/23/22 01/23/22 Range/Units 04:51 04:51 10:27 RBC 3.32 L 3.39 L (4.10-5.20) X 10*6/uL Hgb 9.8 L 10.0 L (12.0-15.0) g/dL Hct 30.7 L 31.6 L (37.2-46.3) % MCHC 31.9 L (32.0-37.0) g/dL RDW 16.2 H (11.5-14.5) % Lymphocytes # 0.7 L (1.0-4.8) k/uL Eosinophils # 0.70 H (0.04-0.35) X 10*3/uL BUN 4.0 L (9.0-27.0) mg/dL Creatinine 0.5 L (0.6-1.5) mg/dL BUN/Creatinine Ratio 8.00 L (12.00-20.00) Ratio Calcium 8.3 L (8.7-10.3) mg/dL Microbiology - Last 24 Hours (Table) 01/21/22 22:17 Stool Culture - Preliminary Stool
--- NOTE | 2022-01-23 14:46 | P.PN ---
Subjective Progress Note Date: 01/23/22 CHIEF COMPLAINT: Epigastric abdominal pain HISTORY OF PRESENT ILLNESS: Patient is also complains of nausea, fatigue and diarrhea. She is having chronic diarrhea diarrhea for about 3 months. Stool for C. diff is negative. She did have EGD and colonoscopy done [facility]. She had a cholecystectomy with Dr. Sandoval about 2 weeks ago. She is currently on a regular diet. She reports poor oral intake. She reports decrease in her epigastric abdominal pain. She did have elevated LFTs on adm ission. Computed tomography scan of his completed shows normal appendix. Fatty infiltration of the liver. Hiatal hernia. No dilated ducts. Afebrile. WBC is 6.6 Hgb 10 platelets 2:30 sodium is 141 potassium is 3.9 creatinine 0.5 magnesium 1.7 AST 200 down to 207 ALT 118 down to 95 alk phos 358 on 3:15 lipase 312 PHYSICAL EXAM: VITAL SIGNS: Reviewed. GENERAL: Well-developed in no acute distress. HEENT: No sclera icterus. Extraocular movements grossly intact. Moist buccal mucosa. Head is atraumatic, normocephalic. ABDOMEN: Soft. Nondistended. Nontender. NEUROLOGIC: Alert and oriented. Cranial nerves II through XII grossly intact. ASSESSMENT: 1. Epigastric abdominal pain 2. Chronic Diarrhea 3. Elevated LFTs 4. Prior cholecystectomy about 2 weeks ago 5. Fatty liver PLAN: -MRCP ordered due to elevated LFTs, recent cholecystectomy and to rule out CBD stone -Consult GI service regarding elevated LFTs -Agree with checking stool studies Physician Self Pay Collector note has been reviewed by physician. Signing provider agrees with the documented findings, assessment, and plan of care. Objective - Vital Signs Vital signs: Vital Signs Temp 98.2 F 01/23/22 07:00 Pulse 88 01/23/22 07:00 Resp 16 01/23/22 07:00 BP 155/78 01/23/22 07:00 Pulse Ox 95 01/23/22 12:18 FiO2 Intake & Output 01/22/22 01/23/22 01/23/22 18:59 06:59 18:59 Weight 54.431 kg Other: Voiding Method Toilet Toilet # Voids 1 3 - Labs CBC & Chem 7: 01/23/22 10:27 01/23/22 04:51 Labs: Abnormal Lab Results - Last 24 Hours (Table) 01/23/22 01/23/22 01/23/22 Range/Units 04:51 04:51 10:27 RBC 3.32 L 3.39 L (4.10-5.20) X 10*6/uL Hgb 9.8 L 10.0 L (12.0-15.0) g/dL Hct 30.7 L 31.6 L (37.2-46.3) % MCHC 31.9 L (32.0-37.0) g/dL RDW 16.2 H (11.5-14.5) % Lymphocytes # 0.7 L (1.0-4.8) k/uL Eosinophils # 0.70 H (0.04-0.35) X 10*3/uL BUN 4.0 L (9.0-27.0) mg/dL Creatinine 0.5 L (0.6-1.5) mg/dL BUN/Creatinine Ratio 8.00 L (12.00-20.00) Ratio Calcium 8.3 L (8.7-10.3) mg/dL Microbiology - Last 24 Hours (Table) 01/21/22 22:17 Stool Culture - Preliminary Stool
--- NOTE | 2022-01-23 17:26 | P.CONS ---
History of Present Illness - Reason for Consult Consult date: 01/23/22 Elevated LFTs Requesting physician: Lucie Salvador - Chief Complaint Diarrhea - History of Present Illness There is a pleasant 57-year-old female who presented to the emergency department with complaints of ongoing diarrhea, weakness and loss of appetite. Patient was recently admitted for similar complaints, she underwent cholecystectomy with Dr. Sandoval on 01/11/2022 for cholecystitis. Pathology came back a calculus, chronic cholecystitis. patient has continued elevated LFTs on this admission for which Gen. surgery consulted gastroenterology. She had a CT of the abdomen and pelvis on admission reporting normal appendix. Fatty infiltration of the liver. Hiatal hernia with no dilated ducts. Is normal, with elevated AST ALT and alkaline phosphatase. Patient also was noted on admission on 01/21/2022 to have mild elevation in her lipase of 312. She is denying any abdominal pain other than some surgical tenderness. States that her biggest complaint is chronic diarrhea. She states she's been suffering with that for the past 3-4 months. She was hospitalized at [facility] following fall which she believes was related to dehydration and diarrhea and sustained a brain hemorrhage. At that time she was put on some medications but those were all discontinued other than her chronic medications 1-2 months ago. She states that she's has 20 loo se, watery bowel movements daily. Non-bloody. She underwent a EGD colonoscopy at [facility] on 09/20/2021 which showed increased chronic inflammation of the lamina propria and few scattered intra-epithelial lymphocytes consistent with a collagenous colitis. She's not had any treatment. States that she has lost 40 pounds since September. He has not followed up with biopsy results [employer] to [facility], patient states she had an appointment but was not able to make it and never rescheduled. LFTs have actually been somewhat trending down. On admission on 01/10/2022 total bilirubin was 2.5 AST 198 ALT 75 alkaline phosphatase 211. C. diff negative. Current labs WBC 6.6 hemoglobin 10 hematocrit 31 platelet count 203,000 INR 0.9 sodium 141 potassium 3.9 total bilirubin 0.7 AST 207 ALT 95 alkaline phosphatase 315 Review of Systems REVIEW OF SYSTEMS: CARDIOPULMONARY: No chest pain or shortness of breath. Gastrointestinal: No abdominal pain. No nausea, no vomiting. No hematemesis, coffee-ground emesis. No rectal bleeding, or melena. Chronic diarrhea, up to 20 times daily, nonbloody, some mucus. GENITOURINARY: No dysuria or hematuria. MUSCULOSKELETAL: Reports normal range of motion. SKIN: No rashes. No jaundice. ENDOCRINE: No chills, fevers. No excessive weight gain or loss. No polydipsia or polyuria. PSYCHIATRIC: Unremarkable. NEUROLOGY: No change in mental status. Denies dizziness, headache. ENT: Vision unremarkable. CONSTITUTIONAL: Weight loss up to 40 pounds since September. No fever, chills, night sweats. Past Medical History Past Medical History: GERD/Reflux, Hypertension Additional Past Medical History / Comment(s): Brain bleed in august 2021 History of Any Multi-Drug Resistant Organisms: None Reported Past Surgical History: Cholecystectomy Past Anesthesia/Blood Transfusion Reactions: No Reported Reaction Past Psychological History: Anxiety Smoking Status: Never smoker Past Alcohol Use History: Rare Past Drug Use History: None Reported - Past Family History Family Additional Family Medical History / Comment(s): Denies any history of CAD in the family Medications and Allergies Home Medications Medication Instructions Recorded Confirmed Type Clotrimazole/Betameth Cream 1 applic TOPICAL BID 01/10/22 01/21/22 History [Lotrisone] Ezetimibe [Zetia] 10 mg PO DAILY 01/10/22 01/21/22 History Omeprazole 20 mg PO DAILY 01/10/22 01/21/22 History Potassium Chloride ER [K-Dur 20] 20 meq PO BID 01/10/22 01/21/22 History Sertraline [Zoloft] 100 mg PO DAILY 01/10/22 01/21/22 History lisinopriL [Prinivil] 10 mg PO DAILY 01/10/22 01/21/22 History Ibuprofen [Motrin] 600 mg PO Q8HR PRN #30 tab 01/13/22 01/21/22 Rx traMADol HCl [Ultram] 100 mg PO Q8HR PRN 3 Days #9 tab 01/13/22 01/21/22 Rx Allergies Allergy/AdvReac Type Severity Reaction Status Date / Time No Known Allergies Allergy Verified 01/21/22 21:57 Physical Exam Vitals: Vital Signs Temp Pulse Resp BP BP Pulse Ox 01/23/22 12:18 95 01/23/22 07:00 98.2 F 88 16 155/78 93 L 01/23/22 03:40 98.4 F 86 17 135/78 96 01/23/22 02:00 86 17 01/22/22 21:33 98.1 F 95 18 131/77 95 01/22/22 20:00 95 18 01/22/22 14:07 97.7 F 88 18 150/82 95 01/22/22 14:00 88 18 Intake and Output 01/22/22 01/23/22 01/23/22 22:59 06:59 14:59 Other: Voiding Method Toilet Toilet # Voids 1 3 General appearance: The patient is alert, oriented, appears in no acute distress. HET: Head is normocephalic and atraumatic. Conjunctiva pink. Sclera anicteric. Neck: Supple without lymphadenopathy. Trachea midline. Heart: S1 S2. Regular rate and rhythm. Lungs: Clear to auscultation. Abdomen: Soft, nontender, nondistended with bowel sounds. No guarding or rigidity. Skin: No rashes. No jaundice. Extremities: Normal skin color and turgor. No pedal edema. Neurological: No focal deficits. Alert and oriented x3. Results CBC & Chem 7: 01/23/22 10:27 01/24/22 09:46 Labs: Abnormal Lab Results - Last 24 Hours (Table) 01/23/22 01/23/22 01/23/22 Range/Units 04:51 04:51 10:27 RBC 3.32 L 3.39 L (4.10-5.20) X 10*6/uL Hgb 9.8 L 10.0 L (12.0-15.0) g/dL Hct 30.7 L 31.6 L (37.2-46.3) % MCHC 31.9 L (32.0-37.0) g/dL RDW 16.2 H (11.5-14.5) % Lymphocytes # 0.7 L (1.0-4.8) k/uL Eosinophils # 0.70 H (0.04-0.35) X 10*3/uL BUN 4.0 L (9.0-27.0) mg/dL Creatinine 0.5 L (0.6-1.5) mg/dL BUN/Creatinine Ratio 8.00 L (12.00-20.00) Ratio Calcium 8.3 L (8.7-10.3) mg/dL Microbiology - Last 24 Hours (Table) 01/21/22 22:17 Stool Culture - Preliminary Stool Comments: CT of the abdomen and pelvis on admission reporting normal appendix. Fatty infiltration of the liver. Hiatal hernia with no dilated ducts. CT scan - abdomen: report reviewed Assessment and Plan (1) Transaminitis Narrative/Plan: 57-year-old female who presented to emergency department with complaints of weakness and chronic diarrhea. She recently underwent Colace cystectomy with Dr. Antoine on 01/11/2022 to state that diarrhea was possibly related to the gallbladder. At that time she had elevated LFTs which started to trend down status post surgery. Pathology shows a calculus chronic cholecystitis. Patient is denying any abdominal pain however LFTs are elevated again during this admission. However total bilirubin is normal. CT of the abdomen and pelvis is showing underlying fatty liver. Patient actually states now that she believes someone has told her that she had some elevated LFTs prior to this admission. She denies any known history though of liver disease. Denies any history of alcohol abuse. Likely elevated LFTs are related to underlying fatty liver disease. Some may be post residual cholecystectomy, clinical picture is less likely CBD obstruction. Current Visit: Yes Status: Acute Code(s): R74.01 - ELEVATION OF LEVELS OF LIVER TRANSAMINASE LEVELS SNOMED Code(s): 715253899 (2) Diarrhea Narrative/Plan: HET colonoscopy report reviewed. From [facility] with pathology showing chronic inflammation is seen with collagenous colitis Current Visit: Yes Status: Acute Code(s): R19.7 - DIARRHEA, UNSPECIFIED SNOMED Code(s): 66597803 Plan: 1. Continue symptomatic and supportive care 2. Please obtain EGD colonoscopy records from [facility] 3. MRCP ordered by general surgery 4. Avoid hepatotoxic medications 5. Will change Imodium to 4 mg 4 times a day 6. Recommend outpatient follow-up with gastroenterology for collagenous colitis, will likely start patient on budesonide at that time 7. Daily CMP 8. No plans on endoscopic evaluation at this time 9. Stool studies ordered Thank you for this consultation, we will continue to follow.
[2022-01-23] MEDS: LOPERAMIDE 2 MG CAP PO SCH ×2 (18:06→20:51)
[2022-01-23 18:18] LABS: Hepatitis A Antibody IgM Nonreactive (Nonreactive); Hepatitis B Core IgM Nonreactive (Nonreactive); Hepatitis B Surface Antigen Nonreactive (Nonreactive); Hepatitis C IgG Antibody Nonreactive (Nonreactive)
--- NOTE | 2022-01-23 20:49 | MR ---
MR MRCP INDICATION: Patient age:Female; 57 years old; Reason for study: elevated LFTs. rule out CBD stone; COMPARISON: CT abdomen pelvis 01/21/2022. TECHNIQUE: Multi planar, T2-weighted imaging with and without fat saturation and chemical shift imag ing was performed of the abdomen. Then, heavily T2 weighted imaging (half-Fourier acquisition single- shot turbo spin-echo) was utilized in order to study the biliary system. Maximum intensity projectio n images were reconstructed from the original data of the biliary tree. No Gadolinium given. FINDINGS: MRCP: The common bile duct at the level of the pancreatic head measures 3 mm in size. The common hepatic duct measures 6 mm in size. The pancreatic duct is normal. There is mild dilation of the left and right hepatic ducts measuring up to 6 mm on the right and 4 mm on the left. The gallbladder is surgically absent. In the pancreatic head is a 11 mm high T2/low T1 signal lesion. Abdomen: Scattered hepatic cysts are present measuring up to 6 cm in the right hepatic lobe. There is diffuse signal dropout on out of phase imaging of the liver. Scattered clonic diverticula. There is a moderate hiatal hernia. Left high T2 signal renal cyst. Breast implants appear intact. IMPRESSION: 1. No evidence to suggest ductal stricture, choledocholithiasis. 2. Pancreatic head lesion which is high T2 signal could represent intraductal papillary mucinous amol plasm versus other etiologies. Follow-up imaging with MRI with IV contrast pancreatic mass protocol i s recommended. 3. Mild dilatation of the left and right hepatic ducts before the confluence. No evidence of obstruct ing mass. This occluded represents normal post cholecystectomy physiology. 4. Hepatic steatosis. 5. Moderate hiatal hernia.
[2022-01-24] MEDS: HYDROmorphone 0.5 MG/0.5 ML SYRINGE IVP PRN ×3 (02:28→13:34)
[2022-01-24] MEDS: SODIUM CHLORIDE 0.9% 1,000 ML IV SCH ×2 (02:34→11:09)
[2022-01-24 05:50] VITALS: RESP 16
[2022-01-24] MEDS: PANTOPRAZOLE 40 MG TABLET PO SCH (08:59)
[2022-01-24] MEDS: FAMOTIDINE 20 MG TAB PO SCH (08:59)
[2022-01-24] MEDS: SERTRALINE 100 MG TAB PO SCH (08:59)
[2022-01-24] MEDS: LOPERAMIDE 2 MG CAP PO SCH ×2 (08:59→13:37)
[2022-01-24] MEDS: HEPARIN SODIUM,PORCINE/PF 5,000 UNIT/0.5 ML SYRINGE SQ SCH (08:59)
[2022-01-24] MEDS: lisinopriL 10 MG TAB PO SCH (09:00)
[2022-01-24 10:13] LABS: ALT 52 U/L (4-34); AST 62 U/L (14-36); African American GFR (CKD) >90 (>60 ml/min/1.73 sqM); Albumin 2.8 g/dL (3.5-5.0); Albumin/Globulin Ratio 1.1; Alkaline Phosphatase 234 U/L (38-126); Anion Gap 6 mmol/L; Blood Urea Nitrogen 4 mg/dL (7-17); Carbon Dioxide 27 mmol/L (22-30); Chloride 104 mmol/L (98-107); Globulin 2.5 g/dL; Glucose 96 mg/dL (74-99); Non-African American GFR(CKD) >90 (>60 ml/min/1.73 sqM); Potassium 3.3 mmol/L (3.5-5.1); Sodium 137 mmol/L (137-145); Total Bilirubin 0.6 mg/dL (0.2-1.3); Total Protein 5.3 g/dL (6.3-8.2)
[2022-01-24 10:31] LABS: Cryptosporidium Antigen Negative (Negative)
[2022-01-24 12:11] VITALS: BMI 21.9
[2022-01-24] MEDS ORDERED: POTASSIUM CHLORIDE ER 20 MEQ TAB.ER PO STA (13:37)
--- NOTE | 2022-01-24 13:40 | P.PN ---
Subjective Progress Note Date: 01/24/22 CHIEF COMPLAINT: Epigastric abdominal pain HISTORY OF PRESENT ILLNESS: Patient complains of nausea, fatigue and diarrhea. She is having chronic diarrhea diarrhea for about 3 months. Stool for C. diff is negative. She did have EGD and colonoscopy done [facility]. She had a cholecystectomy with Dr. Campos about 2 weeks ago. Patient reports that her diarrhea has shown some improvement. Stools are thicker with the Imodium. Her abdominal pain has also shown some improvement. She is tolerating diet. She still reports poor oral intake. Stool cultures are pending. Afebrile. MRCP shows no evidence to suggest ductal stricture or choledocholithiasis. Pancreatic head lesion could represent intraductal papillary mucinous neoplasm versus other etiologies. Follow-up imaging with MRI with IV contrast pancreatic mass protocol as recommended. Mild dilatation of the left and right hepatic ducts before the confluence. No evidence of obstructing mass. This could represent normal post cholecystectomy physiology. Hepatic steatosis. Moderate hiatal hernia. Hepatitis panel is negative. Stool studies so far are negative. LFTs are trending downwards. Potassium 3.3 patient evaluated by GI service who felt patient has collagenous colitis Patient seen and examined with Dr. campos PHYSICAL EXAM: VITAL SIGNS: Reviewed. GENERAL: Well-developed in no acute distress. HEENT: No sclera icterus. Extraocular movements grossly intact. Moist buccal mucosa. Head is atraumatic, normocephalic. ABDOMEN: Soft. Nondistended. Nontender. NEUROLOGIC: Alert and oriented. Cranial nerves II through XII grossly intact. ASSESSMENT: 1. Epigastric abdominal pain with elevated LFTs. MRCP negative for choledocholithiasis 2. Chronic Diarrhea 3. Elevated LFTs 4. Prior cholecystectomy about 2 weeks ago 5. Fatty liver 6. Pancreatic head lesion PLAN: -Await further recommendations regarding patient's pancreatic head lesion, elevated LFTs and chronic diarrhea per GI service -No surgical intervention planned -Continue supportive care Physician Cto note has been reviewed by physician. Signing provider agrees with the documented findings, assessment, and plan of care. Objective - Vital Signs Vital signs: Vital Signs Temp 99.0 F 01/24/22 07:00 Pulse 90 01/24/22 07:00 Resp 16 01/24/22 07:00 BP 143/92 01/24/22 07:00 Pulse Ox 97 01/24/22 08:07 FiO2 Intake & Output 10/03/22 10/04/22 10/04/22 18:59 06:59 18:59 Weight 54.431 kg Other: Voiding Method Toilet # Voids 3 3 - Labs CBC & Chem 7: 01/23/22 10:27 01/24/22 09:46 Labs: Abnormal Lab Results - Last 24 Hours (Table) 01/24/22 Range/Units 09:46 Potassium 3.3 L (3.5-5.1) mmol/L BUN 4 L (7-17) mg/dL Creatinine 0.49 L (0.52-1.04) mg/dL Calcium 8.0 L (8.4-10.2) mg/dL AST 62 H (14-36) U/L ALT 52 H (4-34) U/L Alkaline Phosphatase 234 H (38-126) U/L Total Protein 5.3 L (6.3-8.2) g/dL Albumin 2.8 L (3.5-5.0) g/dL Microbiology - Last 24 Hours (Table) 01/21/22 22:17 Stool Culture - Preliminary Stool
--- NOTE | 2022-01-24 13:54 | P.PN ---
Subjective Progress Note Date: 01/24/22 Principal diagnosis: Elevated LFTs There is a pleasant 57-year-old female who presented to the emergency department with complaints of ongoing diarrhea, weakness and loss of appetite. Patient was recently admitted for similar complaints, she underwent cholecystectomy with Dr. Sandoval on 01/11/2022 for cholecystitis. Pathology came back a calculus, chronic cholecystitis. patient has continued elevated LFTs on this admission for which Gen. surgery consulted gastroenterology. She had a CT of the abdomen and pelvis on admission reporting normal appendix. Fatty infiltration of the liver. Hiatal hernia with no dilated ducts. Is normal, with elevated AST ALT and alkaline phosphatase. Patient also was noted on admission on 01/21/2022 to have mild elevation in her lipase of 312. She is denying any abdominal pain other than some surgical tenderness. States that her biggest complaint is chronic diarrhea. She states she's been suffering with that for the past 3-4 months. She was hospitalized at [facility] following fall which she believes was related to dehydration and diarrhea and sustained a brain hemorrhage. At that time she was put on some medications but those were all discontinued other than her chronic medications 1-2 months ago. She states that she's has 20 loose, watery bowel movements daily. Non-bloody. She underwent a EGD colonoscopy at [facility] on 09/20/2021 which showed increased chronic inflammation of the lamina propria and few scattered intra- epithelial lymphocytes consistent with a collagenous colitis. She's not had any treatment. States that she has lost 40 pounds since September. 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, patient states she had an appointment but was not able to make it and never rescheduled. LFTs have actually been somewhat trending down. On admission on 01/10/2022 total bilirubin was 2.5 AST 198 ALT 75 alkaline phosphatase 211. C. diff negative 01/24/2022: Patient is seen and examined today as a follow-up. She was started on Imodium 4 mg 4 times a day yesterday. She states diarrhea has improved. She states she went 6-7 times through out the night and this morning which is improvement. Also stool is more formed. She denies any abdominal pain, nausea or vomiting. She underwent MRCP yesterday evening which reported no evidence to suggest ductal stricture, choledocholithiasis. Pancreatic head lesion with high T2 signal could represent intraductal papillary mucinous neoplasm versus other etiologies. Mild dilation of left and right hepatic ducts before confluence. No evidence of obstructing mass. This occluded represents normal post: Cystectomy physiology. Hepatic steatosis. Moderate hiatal hernia. LFTs ray nue to trend down. Objective - Vital Signs Vital signs: Vital Signs Temp 99.0 F 01/24/22 07:00 Pulse 90 01/24/22 07:00 Resp 16 01/24/22 07:00 BP 143/92 01/24/22 07:00 Pulse Ox 97 01/24/22 08:07 FiO2 Intake & Output 01/23/22 01/24/22 01/24/22 18:59 06:59 18:59 Other: Voiding Method Toilet # Voids 3 3 - Exam General appearance: The patient is alert, oriented, appears in no acute distress. HET: Head is normocephalic and atraumatic. Conjunctiva pink. Sclera anicteric. Neck: Supple without lymphadenopathy. Abdomen: Soft, nontender, nondistended with bowel sounds. No guarding or rigidity. Extremities: Normal skin color and turgor. No pedal edema Skin: No rashes, no jaundice Neurological: No focal deficits. Alert and oriented. - Labs CBC & Chem 7: 01/23/22 10:27 01/24/22 09:46 Labs: Abnormal Lab Results - Last 24 Hours (Table) 01/23/22 01/24/22 Range/Units 10: 09:46 RBC 3.39 L (3.80-5.40) m/uL Hgb 10.0 L (11.4-16.0) gm/dL Hct 31.6 L (34.0-46.0) % Lymphocytes # 0.7 L (1.0-4.8) k/uL Potassium 3.3 L (3.5-5.1) mmol/L BUN 4 L (7-17) mg/dL Creatinine 0.49 L (0.52-1.04) mg/dL Calcium 8.0 L (8.4-10.2) mg/dL AST 62 H (14-36) U/L ALT 52 H (4-34) U/L Alkaline Phosphatase 234 H (38-126) U/L Total Protein 5.3 L (6.3-8.2) g/dL Albumin 2.8 L (3.5-5.0) g/dL Microbiology - Last 24 Hours (Table) 01/21/22 22:17 Stool Culture - Preliminary Stool Assessment and Plan (1) Transaminitis Narrative/Plan: 57-year-old female who presented to emergency department with complaints of weakness and chronic diarrhea. She recently underwent Colace cystectomy with Dr. Antoine on 01/11/2022 to state that diarrhea was possibly related to the gallbladder. At that time she had elevated LFTs which started to trend down status post surgery. Pathology shows a calculus chronic cholecystitis. Patient is denying any abdominal pain however LFTs are elevated again during this admission. However total bilirubin is normal. CT of the abdomen and pelvis is showing underlying fatty liver. Patient actually states now that she believes someone has told her that she had some elevated LFTs prior to this admission. She denies any known history though of liver disease. Denies any history of alcohol abuse. Likely elevated LFTs are related to underlying fatty liver disease. Some may be post residual cholecystectomy, clinical picture is less likely CBD obstruction. MRCP completed with no evidence of CBD stone or ductal stricture or obstruction. There however was finding of a pancreatic head lesion, which will require outpatient surveillance. Recommend MRI in 6 months. Current Visit: Yes Status: Acute Code(s): R74.01 - ELEVATION OF LEVELS OF LIVER TRANSAMINASE LEVELS SNOMED Code(s): 771077682 (2) Diarrhea Narrative/Plan: HET colonoscopy report reviewed. From [facility] with pathology showing chronic inflammation is seen with collagenous colitis Current Visit: Yes Status: Acute Code(s): R19.7 - DIARRHEA, UNSPECIFIED SNOMED Code(s): 84883724 (3) Pancreatic lesion Narrative/Plan: Recommend outpatient follow-up and surveillance with repeat MRI in 6 months. Current Visit: Yes Status: Acute Code(s): K86.9 - DISEASE OF PANCREAS, UNSPECIFIED SNOMED Code(s): 3864824 Plan: 1. Continue symptomatic and supportive care 2. Will taper down of Imodium to 2 mg 4 times a day, then when necessary 3. Budesonide prescription sent to patient's pharmacy to start upon discharge 4. Recommend outpatient follow-up within [address] Zeng for colitis 5. Recommend outpatient surveillance for pancreatic head lesion, recommend repeat MRI in 6 months Thank you for this consultation, the patient is cleared for discharge from gastroenterology. Dr. Darrel Zeng I agree with the dictator's note, documented as a scribe by Selene Quiroz.
--- NOTE | 2022-01-24 14:42 | P.DS ---
Providers Date of admission: 01/23/22 17:00 Expected date of discharge: 01/24/22 Attending physician: Alison Garcia MD Consults: 01/22/22 01:48 Consult Physician Routine Consulting Provider: Jb Sandoval Consult Reason/Comments: elevated liver enz post lap shana Do you want consulting provider notified?: Yes, Notify in am 01/23/22 11:37 Consult Physician Routine Consulting Provider: Isabel Zeng Consult Reason/Comments: Elevated LFTs, recent shana Do you want consulting provider notified?: Yes Primary care physician: Physician Nonstaff Hospital Course: Discharge Diagnosis: Dehydration secondary to decreased oral intake and reports of chronic intractable diarrhea, patient to follow up outpatient with gastroenterology for follow-up on colitis. Generalized weakness secondary to above, improved after IV hydration. Transaminitis, improving after IV fluid hydration. Hepatitis serologies nonreactive. Pancreatic head lesion, patient was informed of MRCP findings and instructed that she will need to follow up outpatient for surveillance of pancreatic head lesion with repeat MRI recommended in 6 months. Intractable diarrhea, improved. Patient instructed to taper down a use of Lomotil. Stool cultures for Giardia and Cryptosporidium were negative. Hyponatremia, resolved Hypomagnesemia, replaced Lactic acidosis, resolved Hypertension. Monitor vital signs and continue daily medication regimen with lisinopril. Hospital Course: Patient is a pleasant 57-year-old with a past medical history of hypertension, GERD, brain bleed in September 2021, chronic diarrhea since 09/2021, and recent laparoscopic cholecystectomy on 01/11/22. Patient presented to the emergency de partment with a chief complaint of generalized fatigue and weakness in which she reports resulting from uncontrolled chronic diarrhea. Patient underwent full evaluation in the emergency department. CBC, BMP, and coags unremarkable. Patient did have elevated lipase of 312 and elevated liver enzymes with AST of 200, ALT of 118, and alkaline phosphatase of 358. Lactic acid was also elevated at 2.8 decreasing down to 1.0 status post IV fluid bolus. CT abdomen and pelvis completed which was negative for acute intra-abdominal process showing normal appendix, fatty infiltration of liver, small hiatal hernia, no signs of bowel obstruction, and no dilated ducts. Patient was admitted under our services with consultation to general surgery and gastroenterology. MRCP completed revealing hepatic steatosis, moderate hiatal hernia, and pancreatic head lesion. Patient reports improvement in previously reported epigastric pain as well as diarrhea. Stool cultures for Giardia and cryptosporidium are negative. Hepatitis serologies nonreactive. Morning labs reviewed revealing improvement transaminitis with AST of 62, ALT 52, and alkaline phosphatase of 234. Gastroenterology evaluated and recommending outpatient follow-up in the office in 4 weeks for follow-up with colitis and recommended outpatient surveillance of pancreatic head lesion with repeat MRI recommended in 6 months. Patient is medically stable for discharge at this time. Patient instructed she will need to follow up with PCP and gastroenterology. Physical exam: Patient seen and fully evaluated at bedside. Vital signs reviewed and stable. General: Nontoxic, no distress and appears older than stated age.. Derm: Skin warm and dry, normal coloration for ethnicity. Head: Atraumatic, normocephalic and symmetric. Eyes: EOMs intact, no lid lag, and anicteric sclera Mouth: no lip lesions, mucus membranes moist Cardiovascular: regular rate and rhythm with normal S1S2, no murmur, positive posterior tibial pulses bilaterally, and cap refill < 2 seconds. Lungs: Respirations even, regular, and unlabored on room air. Lungs CTA bilaterally, no rhonchi, no rales, no wheezing, and no accessory muscle usage. Abdominal: soft, nontender to palpation, no guarding, no appreciable organomegaly Ext: ROM intact. No gross muscle atrophy, no edema, no contractures Neuro: Speech clear, face symmetrical and CN II-XII grossly intact with no noted focal neuro deficits Psych: Alert and oriented to person, place, time, and situation. Appropriate and pleasant affect. A total of 33 minutes of time were spent preparing this complex discharge summary. Pt was discharged on 01/24/22 at 2:21 PM. Patient Condition at Discharge: Stable Plan - Discharge Summary Discharge Rx Participant: No New Discharge Prescriptions: New Budesonide [Entocort EC] 3 mg PO DAILY #180 cap Continue Potassium Chloride ER [K-Dur 20] 20 meq PO BID Ezetimibe [Zetia] 10 mg PO DAILY traMADol HCl [Ultram] 100 mg PO Q8HR PRN 3 Days #9 tab PRN Reason: Pain lisinopriL [Prinivil] 10 mg PO DAILY Sertraline [Zoloft] 100 mg PO DAILY Clotrimazole/Betameth Cream [Lotrisone] 1 applic TOPICAL BID Omeprazole 20 mg PO DAILY Ibuprofen [Motrin] 600 mg PO Q8HR PRN #30 tab PRN Reason: Pain Discharge Medication List Clotrimazole/Betameth Cream [Lotrisone] 1 applic TOPICAL BID 01/10/22 [History] Ezetimibe [Zetia] 10 mg PO DAILY 01/10/22 [History] Omeprazole 20 mg PO DAILY 01/10/22 [History] Potassium Chloride ER [K-Dur 20] 20 meq PO BID 01/10/22 [History] Sertraline [Zoloft] 100 mg PO DAILY 01/10/22 [History] lisinopriL [Prinivil] 10 mg PO DAILY 01/10/22 [History] Ibuprofen [Motrin] 600 mg PO Q8HR PRN #30 tab 01/13/22 [Rx] traMADol HCl [Ultram] 100 mg PO Q8HR PRN 3 Days #9 tab 01/13/22 [Rx] Budesonide [Entocort EC] 3 mg PO DAILY #180 cap 01/24/22 [Rx] Follow up Appointment(s)/Referral(s): Bruce Jeffrey MD [REFERRING] - 03/08/22 4:30 pm Isabel Zeng MD [STAFF PHYSICIAN] - 03/01/22 1:30 pm Activity/Diet/Wound Care/Special Instructions: Activity: As tolerated. Take breaks as needed. Diet: Heart healthy and carb consistent diet. Avoid salts, or foods with hidden salts such as canned or boxed foods and frozen dinners. Extra salt makes your heart work harder and traps the fluid in your body for longer. Special Instructions: Take all of your medications as directed and remember to keep all of your doctor's appointments and follow-up as needed. As discussed, MRCP completed revealed a pancreatic head lesion and this is highly recommended for you to follow up outpatient for surveillance of this finding with a repeat MRI recommended in 6 months.. Gastroenterology evaluated and recommending tapering down your use of Lomotil at home down to 2 mg 4 times a day as necessary and for you to follow up outpatient in their office in 4 weeks for your colitis. Thank you for allowing us to participate in your care, it was truly a pleasure having you for our patient!!! Discharge Disposition: HOME SELF-CARE
[2022-01-24 17:32] VITALS: BP 149/83; PULSE 85; TEMP 98.2
[2022-01-24] MEDS ORDERED: LOPERAMIDE 2 MG CAP PO SCH (18:00)
== END 2022-01-24 16:53 | disposition home or self-care (01) | DRG 445 ==
LOC: EC 15:38 → 6NMEDSUR 19:41 → OBSVTOIN 01-23 17:00
PROVIDERS: ADMIT Internal Medicine; ATTEND Internal Medicine
DX: K91.5 Postcholecystectomy syndrome (principal); E87.1 Hypo-osmolality and hyponatremia; E87.20 Acidosis, unspecified; K86.89 Other specified diseases of pancreas; E86.0 Dehydration; K52.831 Collagenous colitis; R74.01 Elevation of levels of liver transaminase levels; K81.1 Chronic cholecystitis; K21.9 Gastro-esophageal reflux disease without esophagitis; R53.1 Weakness; R00.0 Tachycardia, unspecified; K44.9 Diaphragmatic hernia without obstruction or gangrene; E78.5 Hyperlipidemia, unspecified; E83.42 Hypomagnesemia; F41.9 Anxiety disorder, unspecified; I10 Essential (primary) hypertension; K76.0 Fatty (change of) liver, not elsewhere classified; Z90.49 Acquired absence of other specified parts of digestive tract; Z79.899 Other long term (current) drug therapy; Y84.9 Medical procedure, unspecified as the cause of abnormal reaction of the patient, or of later complication, without mention of misadventure at the time of the procedure
CPT/HCPCS: 36415; 71046; 74177; 74181; 80048; 80053; 80074; 81003; 83605; 83690; 83735; 84100; 84484; 85025; 85610; 85730; 86301; 87045; 87046; 87324; 87328; 87329; 93005; 94760; 96361; 96372; 96374; 96375; 96376; 99285

== ENCOUNTER 2022-02-09 11:30 | Emergency (ER) | payer OTHER ==
[2022-02-09 11:45] VITALS: TEMP 98
[2022-02-09] MEDS ORDERED: DIPHENOX-ATROP 2.5-0.025 MG 1 EACH TAB PO STA (11:46)
--- NOTE | 2022-02-09 11:51 | ED ---
General Adult HPI - General Chief complaint: Shortness of Breath Stated complaint: DIONICIO Time Seen by Provider: 02/09/22 11:40 Source: patient, EMS, RN notes reviewed, old records reviewed Mode of arrival: EMS Limitations: no limitations - History of Present Illness Initial comments: This is a 57-year-old female presents emergency Department with a past medical history significant for colitis. Patient states she's on steroids which she started beginning of January. Patient states she continues to have diarrhea. Patient states she comes in today because she woke up was having shortness of breath. Patient states she felt like she couldn't catch her breath and she was breathing extremely fast. According to EMS she appeared to be having a panic a ttack and was hyperventilating. EMS stated once he calmed her down her breathing was back to normal and she no longer was short of breath and she was oxygenating in the high 90s to 100%. Patient denies any recent fever chills or cough per patient denies any chest pain. Patient denies abdominal pain. Patient denies any lightheadedness or dizziness. Patient denies any swelling to the legs or calf tenderness. - Related Data Home Medications Medication Instructions Recorded Confirmed Ezetimibe [Zetia] 10 mg PO DAILY 01/10/22 02/09/22 Omeprazole 20 mg PO DAILY 01/10/22 02/09/22 Sertraline [Zoloft] 100 mg PO DAILY 01/10/22 02/09/22 lisinopriL [Prinivil] 10 mg PO DAILY 01/10/22 02/09/22 Budesonide [Entocort EC] See Taper PO DIRECTED 02/09/22 02/09/22 Allergies Allergy/AdvReac Type Severity Reaction Status Date / Time No Known Allergies Allergy Verified 02/09/22 14:01 Review of Systems ROS Statement: Those systems with pertinent positive or pertinent negative responses have been documented in the HPI. ROS Other: All systems not noted in ROS Statement are negative. Past Medical History Past Medical History: GERD/Reflux, Hypertension Additional Past Medical History / Comment(s): Brain bleed in august 2021 History of Any Multi-Drug Resistant Organisms: None Reported Past Surgical History: Cholecystectomy Past Anesthesia/Blood Transfusion Reactions: No Reported Reaction Past Psychological History: Anxiety Smoking Status: Never smoker Past Alcohol Use History: Rare Past Drug Use History: None Reported - Past Family History Family Additional Family Medical History / Comment(s): Denies any history of CAD in the family General Exam - General Exam Comments Initial Comments: GENERAL: Patient is well-developed and well-nourished. Patient is nontoxic and well- hydrated and is in no acute distress. ENT: Neck is soft and supple. No significant lymphadenopathy is noted. Oropharynx is clear. Moist mucous membranes. Neck has full range of motion without eliciting any pain. EYES: The sclera were anicteric and conjunctiva were pink and moist. Extraocular movements were intact and pupils were equal round and reactive to light. Eyelids were unremarkable. PULMONARY: Unlabored respirations. Good breath sounds bilaterally. No audible rales rhonchi or wheezing was noted. CARDIOVASCULAR: There is a regular rate and rhythm without any murmurs gallops or rubs. ABDOMEN: Soft and nontender with normal bowel sounds. SKIN: Skin is clear with no lesions or rashes and otherwise unremarkable. NEUROLOGIC: Patient is alert and oriented x3. Cranial nerves II through XII are grossly intact. Motor and sensory are also intact. Normal speech, volume and content. Symmetrical smile. MUSCULOSKELETAL: Normal extremities with adequate strength and full range of motion. No lower extremity swelling or edema. No calf tenderness. LYMPHATICS: No significant lymphadenopathy is noted PSYCHIATRIC: Patient is mildly anxious Limitations: no limitations Course Vital Signs 02/09/22 02/09/22 11:36 12:00 Temperature 98 F Pulse Rate 73 Respiratory 18 18 Rate Blood Pressure 152/99 O2 Sat by Pulse 100 Oximetry Medical Decision Making - Medical Decision Making EKG shows sinus rhythm at 96 bpm IA interval is 127 QRS is 78 QT interval 373 QTC is 427. Patient's EKG shows T-wave inversions in V1 2 and 3 patient also has Q waves in 3 and aVF states were seen on old EKG. Patient's potassium is low at 3.2 I ordered IV potassium and oral potassium. Patient refused to take it and wanted to be discharged home. Chest x-ray shows no acute abnormality. - Lab Data Result diagrams: 02/09/22 12:01 02/09/22 13:22 Lab Results 02/09/22 02/09/22 02/09/22 Range/Units 12:01 12:16 13:22 WBC 6.4 (3.8-10.6) k/uL RBC 4.16 (3.80-5.40) m/uL Hgb 12.3 (11.4-16.0) gm/dL Hct 36.6 (34.0-46.0) % MCV 88.0 D (80.0-100.0) fL MCH 29.5 (25.0-35.0) pg MCHC 33.5 (31.0-37.0) g/dL RDW 15.5 (11.5-15.5) % Plt Count 162 (150-450) k/uL MPV 8.2 Neutrophils % (Manual) 76 % Lymphocytes % (Manual) 12 % Monocytes % (Manual) 10 % Eosinophils % (Manual) 1 % Basophils % (Manual) 1 % Neutrophils # (Manual) 4.86 (1.3-7.7) k/uL Lymphocytes # (Manual) 0.77 L (1.0-4.8) k/uL Monocytes # (Manual) 0.64 (0-1.0) k/uL Eosinophils # (Manual) 0.06 (0-0.7) k/uL Basophils # (Manual) 0.06 (0-0.2) k/uL Nucleated RBCs 0 (0-0) /100 WBC Manual Slide Review Performed Hypochromasia Moderate Sodium 142 141 (137-145) mmol/L Potassium 3.1 L 3.2 L (3.5-5.1) mmol/L Chloride 112 H 108 H (98-107) mmol/L Carbon Dioxide 16 L 20 L (22-30) mmol/L Anion Gap 14 13 mmol/L BUN 6 L 8 (7-17) mg/dL Creatinine 0.42 L 0.48 L (0.52-1.04) mg/dL Est GFR (CKD-EPI)AfAm >90 >90 (>60 ml/min/1.73 sqM) Est GFR (CKD-EPI)NonAf >90 >90 (>60 ml/min/1.73 sqM) Glucose 94 105 H (74-99) mg/dL Calcium 6.7 L 7.8 L (8.4-10.2) mg/dL Total Bilirubin 0.7 0.9 (0.2-1.3) mg/dL AST 216 H 242 H (14-36) U/L ALT 63 H 73 H (4-34) U/L Alkaline Phosphatase 231 H 263 H (38-126) U/L Total Protein 5.4 L 6.2 L (6.3-8.2) g/dL Albumin 2.7 L 3.3 L (3.5-5.0) g/dL Disposition Clinical Impression: Anxiety, Hyperventilation, Hypokalemia Disposition: HOME SELF-CARE Condition: Good Instructions (If sedation given, give patient instructions): Hypokalemia (ED), Anxiety (ED) Is patient prescribed a controlled substance at d/c from ED?: No Referrals: Nonstaff,Physician [Primary Care Provider] - 1-2 days Time of Disposition: 14:36
[2022-02-09 12:18] LABS: HCT 36.6 % (34.0-46.0); HGB 12.3 gm/dL (11.4-16.0); Hypochromasia Moderate; MCH 29.5 pg (25.0-35.0); MCHC 33.5 g/dL (31.0-37.0); Mean Platelet Volume 8.2; Platelet Count 162 k/uL (150-450); RBC 4.16 m/uL (3.80-5.40); RDW 15.5 % (11.5-15.5); WBC 6.4 k/uL (3.8-10.6)
[2022-02-09 12:29] LABS: ALT 63 U/L (4-34); AST 216 U/L (14-36); African American GFR (CKD) >90 (>60 ml/min/1.73 sqM); Albumin 2.7 g/dL (3.5-5.0); Alkaline Phosphatase 231 U/L (38-126); Anion Gap 14 mmol/L; Blood Urea Nitrogen 6 mg/dL (7-17); Calcium 6.7 mg/dL (8.4-10.2); Carbon Dioxide 16 mmol/L (22-30); Chloride 112 mmol/L (98-107); Glucose 94 mg/dL (74-99); Non-African American GFR(CKD) >90 (>60 ml/min/1.73 sqM); Sodium 142 mmol/L (137-145); Total Bilirubin 0.7 mg/dL (0.2-1.3); Total Protein 5.4 g/dL (6.3-8.2)
--- NOTE | 2022-02-09 12:37 | XR ---
EXAMINATION TYPE: XR chest 2V DATE OF EXAM: 02/09/2022 COMPARISON: Chest x-ray 19 days ago. HISTORY: Difficulty in breathing. TECHNIQUE: Frontal and lateral views of the chest are obtained. FINDINGS: Overlying bra strap. There is no suspicious new focal air space opacity, pleural effusion, or pneumothorax seen. The cardiac silhouette size is stable and within normal limits. The osseous structures are intact. IMPRESSION: No acute process. No significant change from prior.
[2022-02-09 12:41] LABS: Potassium 3.1 mmol/L (3.5-5.1)
[2022-02-09 12:47] LABS: Basophils # (M) 0.06 k/uL (0-0.2); Eosinophils # (M) 0.06 k/uL (0-0.7); Lymphocytes # (M) 0.77 k/uL (1.0-4.8); Monocytes # (M) 0.64 k/uL (0-1.0); Neutrophils # (M) 4.86 k/uL (1.3-7.7); Neutrophils % (M) 76 %; Nucleated Red Blood Cells 0 /100 WBC (0-0); Total Cells Counted 100
[2022-02-09 13:53] LABS: ALT 73 U/L (4-34); AST 242 U/L (14-36); African American GFR (CKD) >90 (>60 ml/min/1.73 sqM); Albumin 3.3 g/dL (3.5-5.0); Alkaline Phosphatase 263 U/L (38-126); Anion Gap 13 mmol/L; Blood Urea Nitrogen 8 mg/dL (7-17); Calcium 7.8 mg/dL (8.4-10.2); Carbon Dioxide 20 mmol/L (22-30); Chloride 108 mmol/L (98-107); Glucose 105 mg/dL (74-99); Non-African American GFR(CKD) >90 (>60 ml/min/1.73 sqM); Potassium 3.2 mmol/L (3.5-5.1); Sodium 141 mmol/L (137-145); Total Bilirubin 0.9 mg/dL (0.2-1.3); Total Protein 6.2 g/dL (6.3-8.2)
[2022-02-09] MEDS: POTASSIUM CHLORIDE ER 20 MEQ TAB.ER PO STA ×2 (14:27→14:34)
[2022-02-09] MEDS: POTASSIUM CHLORIDE ER 10 MEQ TAB.ER.PRT PO STA ×2 (14:27→14:34)
[2022-02-09 15:27] VITALS: BP 168/84; PULSE 89; RESP 20
== END 2022-02-09 15:27 | disposition home or self-care (01) ==
LOC: EC 11:30
DX: F41.9 Anxiety disorder, unspecified (principal); R06.4 Hyperventilation; E87.6 Hypokalemia; K21.9 Gastro-esophageal reflux disease without esophagitis; I10 Essential (primary) hypertension; Z79.83 Long term (current) use of bisphosphonates; Z79.899 Other long term (current) drug therapy; Z79.01 Long term (current) use of anticoagulants
CPT/HCPCS: 36415; 71046; 80053; 85025; 93005; 99285